=== PATIENT | female | born 1955 | race Caucasian/White ===

== ENCOUNTER 2016-09-02 13:19 | Inpatient (IN) | payer SELFPAY ==
[~2016-09-02] VITALS: Ht 149.9 cm; Wt 37.0 kg
--- NOTE | ~2016-09-02 | CON ---
[place], [place] REPORT OF CONSULTATION NAME: KAVON MEADOWS UNIT #: [id number] ROOM: 420 DOCTOR: DONTA JONES MDPATIRCIA BIRTHDATE: [birth year] DOS: 09/03/2016 PULMONARY CONSULTATION EVALUATION AND MANAGEMENT REASON FOR CONSULTATION: To assess the patient for COPD and increased symptoms related to that. HISTORY OF PRESENT ILLNESS: This is a 61-year-old white female unknown to me from the past. The patient has been admitted to the hospital under the hospitalist services. The patient stated that she has been feeling burning sensation in the stomach for the patient related to the ulcer. The patient also noted symptoms of shortness of breath as well. She denies symptoms of chest pain. Shortness of breath has been noted for a long period of time and noted with recent worsening. The patient has been denying any symptoms of acute cough. Denies symptoms of chest pain or any active wheezing. The patient stated that she has felt improvement in the symptoms since yesterday. REVIEW OF SYSTEMS: CONSTITUTIONAL SYMPTOMS: She does complain of symptoms of fatigue and tiredness without any symptoms of fever or chills. EYES: Denies any burning, redness, or tenderness. EARS, NOSE, THROAT SYMPTOMS: No sore throat, hoarseness, otalgia, postnasal drainage. CARDIOVASCULAR SYSTEM: Denies anginal pain, edema or pain of the lower extremities. GASTROINTESTINAL SYMPTOMS: The patient does complain of burning sensation and pain in the upper portion of the abdomen. Denies symptoms of hematemesis, melena, hematochezia or diarrhea. GENITOURINARY SYMPTOMS: Denies dysuria, suprapubic pain, hematuria. MUSCULOSKELETAL SYMPTOMS: Acute joint pain, redness, or tenderness. SKIN: No lesions or rashes. CENTRAL NERVOUS SYSTEM: Denies dizziness, headache, diplopia, syncopal episodes or seizures. Remaining systems were reviewed with the patient, they were noted all negative. PAST MEDICAL HISTORY: The patient was known with, 1. History of COPD ____. 2. Possibility chronic hypoxic respiratory failure per patient, but not using oxygen supplementation stated because of the oxygen, she could not afford at home. 3. Peptic ulcer disease. SOCIAL HISTORY: The patient reported with 2 children. Smoking was noted of the patient actively 1 pack of cigarettes per day. SURGICAL HISTORY: Denied for any surgeries. FAMILY HISTORY: About the father was unknown. Mother at the age of 6565 years old from unknown medical complications. [place], [place] REPORT OF CONSULTATION NAME: KAVON MEADOWS #: [id number] UNIT #: [id number] ROOM: [facility] DOCTOR: PATRICIA DE JESUS MD BIRTHDATE: [birth year] MEDICATIONS: The medication reconciliation of the patient which has been recorded for the patient at the time of admission from home were noted as Carafate, omeprazole, and albuterol with the nebulizer p.r.n. use. DRUG ALLERGY HISTORY: The patient was reported as allergy to the aspirin causing ringing in the ears. 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 Height of 4 feet 11 inches, weight of 36 kilograms, BMI 16.4. VITAL SIGNS: Showed normal temperature, respiratory rate 18-20, heart rate of 94-116 with mild sinus tachycardia, blood pressure 87/71 for the patient to 102/56. Intake for the patient 2400 mL, output 800 mL. Pulse oxygen saturation on room air was 87% 2 L nasal cannula 97% saturation. HEENT: Examination shows head was atraumatic. Eyes: No icterus. Neck was supple. Edentulous status. CARDIOVASCULAR SYSTEM: S1, S2 is audible. LUNGS: The patient was noted with diffuse reduction in breath sounds bilaterally without any active crackles, rhonchi or wheezing. ABDOMEN: Soft, nontender, bowel sounds present. EXTREMITIES: Show loss of muscle mass for this patient, there was no edema, clubbing or cyanosis. CENTRAL NERVOUS SYSTEM: No focal deficit. Cranial nerves 2-12 intact. MUSCULOSKELETAL SYMPTOMS: No deformities. SKIN: No lesions or rashes. LABORATORY DATA: Lactic acid yesterday 1.5 that was normal. INR for the patient yesterday was noted as normal on admission. CMP yesterday on admission, normal BUN and creatinine. Liver function tests, CK-MB and troponin. CBC yesterday on admission, WBC count 14.4, hemoglobin normal, hematocrit 48.8 that was normal, platelet count 245,000. The differentials of the patient ____ differential noted 93% segmented neutrophils. Arterial blood gas pH of 7.35, pCO2 of 44, pO2 of 115 on unknown oxygen room air not reported. Additional 2 sets of CK-MB, troponin of patient this morning was done, noted normal. The BMP of the patient was noted as normal today. CBC of the patient of this morning, hemoglobin and hematocrit normal. WBC count was normal, platelet count was normal, 185,000. Chest x-ray one view for the patient that was done for this patient in the Emergency Room for this patient was reviewed, shows severe hyperinflated changes and changes of centrilobular emphysema for this patient was also noted. No discrete pulmonary infiltration for this patient noted with small linear area of atelectasis of the patient in the left lower lung. IMPRESSION: 1. The patient who had been currently admitted to the hospital noted with possibility of flare of the symptoms of peptic ulcer disease for this patient. 2. The patient with hypoxia, suspected obstructive sleep apnea disorder. 3. Chronic nicotine dependence. 4. Protein calorie malnutrition was suspected with chronic weight loss for this [place], [place] REPORT OF CONSULTATION NAME: KAVON MEADOWS UNIT #: [id number] ROOM: 420 DOCTOR: DONTA JONES MD,PATRICIA BIRTHDATE: [birth year] patient related to the advanced emphysema for this patient would be considered. PLAN OF TREATMENT: The patient would be recommended about the treatment of long-term management of COPD, oxygen supplementation to be continued. She would not require any corticosteroids at this time. Prealbumin level was ordered for the patient to assess the protein calorie malnutrition status for the baseline. The nutrition supplements for this patient could be given for this patient as well for increased calorie intake. She had been offered to use the nicotine replacement patches for this patient to help overcome the nicotine withdrawal. The patient does not wish to use any nicotine replacement therapy stated that she can fight of the current tobacco cessation. Other supportive therapy, plan of management to be continued as well. Usual care. Nutrition supplements, the patient will be ordered. Thanks for allowing me to participate in the care of this patient. PATRICIA LONGO MD CM:CONSTR:REPORT OF CONSULTATION 1209 09/04/16 0633 interface
[~2016-09-02 13:19] MED LIST: ALBUTEROL2.5 MG/0.5 INH; CARAFATE1 G1 PO; MAALOX MAXIMUM355 ML PO; NKHM; PRILOSEC20 M2 PO; PRILOSEC40 M1 PO; PRILOSEC40 MG PO; PROTONIX40 MG PO
[2016-09-02 13:26] VITALS: BP 97/68
[2016-09-02 14:22] LABS: HEMATOCRIT 48.8 % (37.0-47.0); HEMOGLOBIN 15.6 g/dl (12.0-16.0); MEAN CELL VOLUME 110.7 fl (81.0-99.0); MEAN CORPUSCULAR HGB 35.4 pg (27.0-31.0); MEAN PLATELET VOLUME 12.2 fl (9.6-12.3); PLATELET COUNT AUTOMATED 245 10*3/uL (130-400); RED BLOOD COUNT 4.41 10*6/uL (4.10-5.10); RED CELL DISTRI WIDTH 11.7 % (0-14.5); WHITE BLOOD COUNT 14.4 10*3/uL (4.8-10.8)
[2016-09-02 14:39] LABS: ALBUMIN 3.7 gm/dl (3.1-4.5); ALKALINE PHOSPHATASE 81 U/L (45-117); BILIRUBIN, TOTAL 0.7 mg/dl (0.2-1.0); BUN 19 mg/dl (7-24); CARBON DIOXIDE 29 mmol/L (21-32); CHLORIDE 102 mmol/L (98-107); CPK 55 U/L (26-192); EST GLOM FILT AFRICAN AMERICAN > 60 ml/min; GLUCOSE 107 mg/dL (65-99); LDH 135 U/L (84-246); MAGNESIUM 1.9 mg/dL (1.5-2.1); POTASSIUM 4.9 mmol/L (3.5-5.1); SGOT/AST 15 IU/L (3-35); SGPT/ALT 15 U/L (12-78); SODIUM 141 mmol/L (136-145); TOTAL PROTEIN 7.9 gm/dL (6.4-8.2)
[2016-09-02 14:40] LABS: CKMB 1.7 ng/ml (0.5-3.6); EOSINOPHIL # 0.1 10*3/uL (0-0.4); EOSINOPHILS 1 % (1-4); LYMPHOCYTE # 0.7 10*3/uL (1.3-4.4); MONOCYTE # 0.1 10*3/uL (0.1-1.0); NEUTROPHIL # 13.4 10*3/uL (2.3-7.9); NEUTROPHILS 93 % (47-73); TOTAL CELLS COUNTED 100 #CELLS; TROPONIN I < 0.015 ng/ml (<0.045)
[2016-09-02 14:41] LABS: PLATELET SUFFICIENCY NORMAL (NORMAL)
[2016-09-02 15:55] VITALS: BP 102/56
[2016-09-02 15:56] LABS: ABG BASE EXCESS -1.3 mmol/L (-2.0-2.0); ABG CO2 CONTENT 25.3 mmol/L (23-27); ABG TEMPERATURE 98.8 F (98.0-99.0); ARTERIAL BLOOD GAS PH 7.35 (7.35-7.45)
[2016-09-02 17:58] VITALS: BP 87/71
[2016-09-02 20:00] VITALS: BP 85/62
[2016-09-03] VITALS: BP 94/62
[2016-09-03 00:53] LABS: CKMB 2.5 ng/ml (0.5-3.6)
[2016-09-03 00:56] LABS: CPK 146 U/L (26-192); TROPONIN I < 0.015 ng/ml (<0.045)
[2016-09-03 06:19] LABS: MEAN CELL VOLUME 111.3 fl (81.0-99.0); MEAN CORPUSCULAR HGB 34.7 pg (27.0-31.0); MEAN CORPUSCULAR HGB CONC 31.2 g/dl (33.0-37.0); MEAN PLATELET VOLUME 12.7 fl (9.6-12.3); PLATELET COUNT AUTOMATED 185 10*3/uL (130-400); RED BLOOD COUNT 3.54 10*6/uL (4.10-5.10); RED CELL DISTRI WIDTH 11.6 % (0-14.5); WHITE BLOOD COUNT 6.3 10*3/uL (4.8-10.8)
[2016-09-03 06:33] LABS: CKMB 3.8 ng/ml (0.5-3.6)
[2016-09-03 06:35] LABS: CPK 237 U/L (26-192); TROPONIN I < 0.015 ng/ml (<0.045)
[2016-09-03 06:39] LABS: HEMATOCRIT 39.4 % (37.0-47.0); HEMOGLOBIN 12.3 g/dl (12.0-16.0); HEMOGLOBIN A1c 4.9 % (4.8-5.6)
[2016-09-03 06:59] LABS: BUN 12 mg/dl (7-24); CARBON DIOXIDE 27 mmol/L (21-32); CHLORIDE 109 mmol/L (98-107); GLUCOSE 77 mg/dL (65-99); MAGNESIUM 1.9 mg/dL (1.5-2.1); SODIUM 143 mmol/L (136-145)
[2016-09-03 07:07] LABS: VITAMIN D, 25-HYDROXY 6.5 ng/mL (30-100)
[2016-09-03 07:08] LABS: FOLIC ACID 5.41 ng/mL (>5.38)
[2016-09-03 07:12] LABS: CHOLESTEROL 106 mg/dL (<200); EST GLOM FILT AFRICAN AMERICAN > 60 ml/min; HDL CHOLESTEROL 53 mg/dl (40-60); LDL CHOLESTEROL 38 mg/dL (9-159); PHOSPHOROUS 2.8 mg/dL (2.5-4.9); TRIGLYCERIDES 76 mg/dl (<150); VLDL CHOLESTEROL 15 mg/dL (6-40)
[2016-09-03 07:13] LABS: POTASSIUM 3.9 mmol/L (3.5-5.1)
[2016-09-03 07:19] LABS: ATYPICAL LYMPHS 1 % (0-0); LYMPHOCYTE # 0.9 10*3/uL (1.3-4.4); MONOCYTE # 0.1 10*3/uL (0.1-1.0); NEUTROPHIL # 5.2 10*3/uL (2.3-7.9); NEUTROPHILS 83 % (47-73); TOTAL CELLS COUNTED 100 #CELLS
[2016-09-03 07:20] LABS: PLATELET SUFFICIENCY NORMAL (NORMAL)
[2016-09-03 08:00] VITALS: BP 96/68
[2016-09-03 12:00] VITALS: BP 85/42
[2016-09-03 14:37] VITALS: BP 94/51
[2016-09-03 16:00] VITALS: BP 90/61
[2016-09-03] MEDS ORDERED: PREDNISONE10 MG PO (16:28)
[2016-09-03] MEDS ORDERED: LEVOFLOXACIN500 MG PO (16:28)
[2016-09-03] MEDS ORDERED: PROAIR HFA8.5 GM INH (16:28)
[2016-09-03] MEDS ORDERED: VITAMIN D5000 UNIT PO (16:30)
[2016-09-03] MEDS ORDERED: OXYGEN NAS (16:30)
== END 2016-09-03 17:46 | disposition home or self-care (01) | DRG 871 ==
LOC: ED 13:19 → EDHOLD 16:37 → 4E 16:37
PROVIDERS: Internal Medicine; Physician Assistant
DX: A41.9 Sepsis, unspecified organism (principal); J96.21 Acute and chronic respiratory failure with hypoxia; K27.9 Peptic ulcer, site unspecified, unspecified as acute or chronic, without hemorrhage or perforation; E55.9 Vitamin D deficiency, unspecified; F17.210 Nicotine dependence, cigarettes, uncomplicated; K21.9 Gastro-esophageal reflux disease without esophagitis; E46 Unspecified protein-calorie malnutrition; J44.1 Chronic obstructive pulmonary disease with (acute) exacerbation; Z68.1 Body mass index [BMI] 19.9 or less, adult; Z71.6 Tobacco abuse counseling; Z99.81 Dependence on supplemental oxygen; Z82.49 Family history of ischemic heart disease and other diseases of the circulatory system; Z88.6 Allergy status to analgesic agent; Z79.51 Long term (current) use of inhaled steroids; Z79.899 Other long term (current) drug therapy

== ENCOUNTER 2016-09-04 12:23 | Emergency (ER) | payer SELFPAY ==
[~2016-09-04] VITALS: Wt 35.4 kg
[~2016-09-04 12:23] MED LIST changes: +LEVOFLOXACIN500 MG PO; +OXYGEN NAS; +PREDNISONE10 MG PO; +PROAIR HFA8.5 GM INH; +VITAMIN D5000 UNIT PO
[2016-09-04 13:04] LABS: HEMATOCRIT 41.1 % (37.0-47.0); HEMOGLOBIN 13.1 g/dl (12.0-16.0); MEAN CORPUSCULAR HGB 35.7 pg (27.0-31.0); MEAN CORPUSCULAR HGB CONC 31.9 g/dl (33.0-37.0); MEAN PLATELET VOLUME 11.9 fl (9.6-12.3); PLATELET COUNT AUTOMATED 203 10*3/uL (130-400); RED BLOOD COUNT 3.67 10*6/uL (4.10-5.10); RED CELL DISTRI WIDTH 11.7 % (0-14.5); WHITE BLOOD COUNT 5.5 10*3/uL (4.8-10.8)
[2016-09-04 13:04] LABS: BILIRUBIN NEGATIVE (NEGATIVE); BLOOD 2+ (NEGATIVE); CLARITY CLEAR (CLEAR); COLOR YELLOW (YELLOW); GLUCOSE NEGATIVE (NEGATIVE); KETONE TRACE (NEGATIVE); LEUKO ESTERASE NEGATIVE (NEGATIVE); NITRITE NEGATIVE (NEGATIVE); PROTEIN NEGATIVE (NEGATIVE); SPECIFIC GRAVITY 1.015 (1.005-1.030); UROBILINOGEN 0.2 E.U./dl (0.2-1.0)
[2016-09-04 13:19] LABS: URINE REFLEX COMMENT YES (NO)
[2016-09-04 13:23] LABS: ALBUMIN 3.2 gm/dl (3.1-4.5); ALKALINE PHOSPHATASE 66 U/L (45-117); BILIRUBIN, TOTAL 0.2 mg/dl (0.2-1.0); BUN 7 mg/dl (7-24); CARBON DIOXIDE 27 mmol/L (21-32); CHLORIDE 108 mmol/L (98-107); EST GLOM FILT AFRICAN AMERICAN > 60 ml/min; GLUCOSE 88 mg/dL (65-99); SGOT/AST 21 IU/L (3-35); SGPT/ALT 15 U/L (12-78); SODIUM 144 mmol/L (136-145); TOTAL PROTEIN 6.7 gm/dL (6.4-8.2)
[2016-09-04 13:26] LABS: EOSINOPHIL # 0.1 10*3/uL (0-0.4); EOSINOPHILS 1 % (1-4); LYMPHOCYTE # 1.5 10*3/uL (1.3-4.4); MONOCYTE # 0.4 10*3/uL (0.1-1.0); NEUTROPHIL # 3.6 10*3/uL (2.3-7.9); NEUTROPHILS 65 % (47-73); PLATELET SUFFICIENCY NORMAL (NORMAL); TOTAL CELLS COUNTED 100 #CELLS
== END 2016-09-04 14:35 | disposition home or self-care (01) ==
LOC: ED 12:23
PROVIDERS: Registered Nurse
DX: J43.9 Emphysema, unspecified (principal); F17.200 Nicotine dependence, unspecified, uncomplicated; Z88.6 Allergy status to analgesic agent; Z79.899 Other long term (current) drug therapy

== ENCOUNTER 2016-09-20 11:22 | Emergency (ER) | payer SELFPAY ==
[2016-09-20] MEDS ORDERED: VENTOLIN 02.5 MG/3 M INH (12:59)
== END 2016-09-20 13:10 | disposition home or self-care (01) ==
LOC: ED 11:22
DX: R25.1 Tremor, unspecified (principal); J44.9 Chronic obstructive pulmonary disease, unspecified; K21.9 Gastro-esophageal reflux disease without esophagitis; F17.200 Nicotine dependence, unspecified, uncomplicated; Z88.6 Allergy status to analgesic agent; Z79.899 Other long term (current) drug therapy

== ENCOUNTER 2016-09-23 12:06 | Emergency (ER) | payer SELFPAY ==
[~2016-09-23] VITALS: Wt 35.4 kg
[~2016-09-23 12:06] MED LIST changes: +VENTOLIN 02.5 MG/3 M INH
== END 2016-09-23 14:20 | disposition home or self-care (01) ==
LOC: ED 12:06
DX: J44.9 Chronic obstructive pulmonary disease, unspecified (principal); K21.9 Gastro-esophageal reflux disease without esophagitis; E55.9 Vitamin D deficiency, unspecified; F17.200 Nicotine dependence, unspecified, uncomplicated; Z88.6 Allergy status to analgesic agent; Z79.899 Other long term (current) drug therapy; Z99.81 Dependence on supplemental oxygen

== ENCOUNTER 2016-11-28 12:15 | Emergency (ER) | payer SELFPAY ==
[~2016-11-28] VITALS: Wt 35.8 kg
[2016-11-28 13:02] LABS: HEMATOCRIT 40.9 % (37.0-47.0); HEMOGLOBIN 12.7 g/dl (12.0-16.0); MEAN CELL VOLUME 113.3 fl (81.0-99.0); MEAN CORPUSCULAR HGB 35.2 pg (27.0-31.0); MEAN CORPUSCULAR HGB CONC 31.1 g/dl (33.0-37.0); MEAN PLATELET VOLUME 11.9 fl (9.6-12.3); PLATELET COUNT AUTOMATED 220 10*3/uL (130-400); RED BLOOD COUNT 3.61 10*6/uL (4.10-5.10); RED CELL DISTRI WIDTH 11.8 % (0-14.5); WHITE BLOOD COUNT 6.3 10*3/uL (4.8-10.8)
[2016-11-28 13:14] LABS: BILIRUBIN NEGATIVE (NEGATIVE); BLOOD NEGATIVE (NEGATIVE); CLARITY SL CLOUDY (CLEAR); COLOR STRAW (YELLOW); GLUCOSE NEGATIVE (NEGATIVE); KETONE NEGATIVE (NEGATIVE); LEUKO ESTERASE NEGATIVE (NEGATIVE); NITRITE NEGATIVE (NEGATIVE); PH 7.5 (5.0-9.0); PROTEIN NEGATIVE (NEGATIVE); SPECIFIC GRAVITY <= 1.005 (1.005-1.030); UROBILINOGEN 0.2 E.U./dl (0.2-1.0)
[2016-11-28 13:20] LABS: ALBUMIN 3.8 gm/dl (3.1-4.5); ALKALINE PHOSPHATASE 74 U/L (45-117); BILIRUBIN, TOTAL 0.3 mg/dl (0.2-1.0); BUN 9 mg/dl (7-24); CARBON DIOXIDE 34 mmol/L (21-32); CHLORIDE 100 mmol/L (98-107); EST GLOM FILT AFRICAN AMERICAN > 60 ml/min; GLUCOSE 85 mg/dL (65-99); POTASSIUM 4.6 mmol/L (3.5-5.1); SGOT/AST 14 IU/L (3-35); SGPT/ALT 13 U/L (12-78); SODIUM 144 mmol/L (136-145); TOTAL PROTEIN 7.5 gm/dL (6.4-8.2)
[2016-11-28 13:21] LABS: BASOPHIL # 0.1 10*3/uL (0-0.1); BASOPHILS 1 % (0-1); LYMPHOCYTE # 2.1 10*3/uL (1.3-4.4); MONOCYTE # 0.3 10*3/uL (0.1-1.0); NEUTROPHIL # 3.9 10*3/uL (2.3-7.9); NEUTROPHILS 62 % (47-73); PLATELET SUFFICIENCY NORMAL (NORMAL); TOTAL CELLS COUNTED 100 #CELLS; TROPONIN I < 0.015 ng/ml (<0.045)
[2016-11-28 13:28] LABS: URINE REFLEX COMMENT NO (NO)
[2016-11-28 13:29] LABS: BACTERIA TRACE
[2016-11-28] MEDS ORDERED: PEPCID20 MG PO (13:38)
== END 2016-11-28 14:58 | disposition home or self-care (01) ==
LOC: ED 12:15
PROVIDERS: Physician Assistant
DX: K21.9 Gastro-esophageal reflux disease without esophagitis (principal); F17.200 Nicotine dependence, unspecified, uncomplicated; Z88.6 Allergy status to analgesic agent

== ENCOUNTER 2016-12-09 16:39 | Emergency (ER) | payer SELFPAY ==
[~2016-12-09] VITALS: Wt 33.6 kg
[~2016-12-09 16:39] MED LIST changes: +PEPCID20 MG PO
[2016-12-09 17:15] LABS: BILIRUBIN NEGATIVE (NEGATIVE); BLOOD TRACE-INTACT (NEGATIVE); CLARITY CLEAR (CLEAR); COLOR YELLOW (YELLOW); GLUCOSE NEGATIVE (NEGATIVE); KETONE NEGATIVE (NEGATIVE); LEUKO ESTERASE NEGATIVE (NEGATIVE); NITRITE NEGATIVE (NEGATIVE); PROTEIN NEGATIVE (NEGATIVE); SPECIFIC GRAVITY <= 1.005 (1.005-1.030); UROBILINOGEN 0.2 E.U./dl (0.2-1.0)
[2016-12-09 17:21] LABS: BACTERIA TRACE; EPITHELIAL CELLS 0-2
[2016-12-09 17:22] LABS: URINE REFLEX COMMENT NO (NO)
[2016-12-09 17:27] LABS: HEMATOCRIT 41.7 % (37.0-47.0); HEMOGLOBIN 12.8 g/dl (12.0-16.0); MEAN CELL VOLUME 112.7 fl (81.0-99.0); MEAN CORPUSCULAR HGB 34.6 pg (27.0-31.0); MEAN CORPUSCULAR HGB CONC 30.7 g/dl (33.0-37.0); MEAN PLATELET VOLUME 12.2 fl (9.6-12.3); PLATELET COUNT AUTOMATED 217 10*3/uL (130-400); RED CELL DISTRI WIDTH 11.5 % (0-14.5); WHITE BLOOD COUNT 6.2 10*3/uL (4.8-10.8)
[2016-12-09 17:47] LABS: ALBUMIN 3.8 gm/dl (3.1-4.5); ALKALINE PHOSPHATASE 65 U/L (45-117); BILIRUBIN, TOTAL 0.3 mg/dl (0.2-1.0); BUN 8 mg/dl (7-24); CARBON DIOXIDE 34 mmol/L (21-32); CHLORIDE 100 mmol/L (98-107); EST GLOM FILT AFRICAN AMERICAN > 60 ml/min; GLUCOSE 91 mg/dL (65-99); POTASSIUM 4.1 mmol/L (3.5-5.1); SGOT/AST 16 IU/L (3-35); SGPT/ALT 13 U/L (12-78); SODIUM 140 mmol/L (136-145); TOTAL PROTEIN 7.4 gm/dL (6.4-8.2)
[2016-12-09 17:49] LABS: TROPONIN I < 0.015 ng/ml (<0.045)
[2016-12-09 18:01] LABS: BASOPHIL # 0.1 10*3/uL (0-0.1); BASOPHILS 1 % (0-1); EOSINOPHIL # 0.1 10*3/uL (0-0.4); EOSINOPHILS 2 % (1-4); LYMPHOCYTE # 2.4 10*3/uL (1.3-4.4); MONOCYTE # 0.4 10*3/uL (0.1-1.0); NEUTROPHIL # 3.2 10*3/uL (2.3-7.9); NEUTROPHILS 52 % (47-73); TOTAL CELLS COUNTED 100 #CELLS
[2016-12-09 18:03] LABS: PLATELET SUFFICIENCY NORMAL (NORMAL); POLYCHROMASIA SLIGHT
[2016-12-09] MEDS ORDERED: PRILOSEC20 M1 PO (18:24)
== END 2016-12-09 18:35 | disposition home or self-care (01) ==
LOC: ED 16:39
PROVIDERS: Emergency Medicine
DX: R10.13 Epigastric pain (principal); R06.02 Shortness of breath; J44.9 Chronic obstructive pulmonary disease, unspecified; K21.9 Gastro-esophageal reflux disease without esophagitis; Z88.6 Allergy status to analgesic agent; Z79.899 Other long term (current) drug therapy; Z87.891 Personal history of nicotine dependence

== ENCOUNTER 2017-01-14 10:58 | Inpatient (IN) | payer SELFPAY ==
[~2017-01-14] VITALS: Ht 149.8 cm; Wt 37.2 kg
[2017-01-14] VITALS (7 sets, daily range): BP systolic 108–138; BP diastolic 47–81
--- NOTE | ~2017-01-14 | EKG ---
[place], [place] ELECTROCARDIOGRAM REPORT NAME: KAVON MEADOWS UNIT #: [id number] ROOM: 522 DOCTOR: CHIVO REES MD BIRTHDATE: [birth year] DOS: 01/14/2017 TIME: 1134 hours. Normal sinus rhythm at 81 beats per minute. QS in V1 to V3 with poor R-wave in V4 raises a likelihood of an old anterior wall myocardial, infarction. An abnormal ECG. No previous tracing is available for comparison. CHIVO REES MD CM:EKGRPT:ELECTROCARDIOGRAM REPORT 1730 10 CHIVO REES MD
[~2017-01-14 10:58] MED LIST changes: +PRILOSEC20 M1 PO
[2017-01-14 11:38] LABS: HEMATOCRIT 38.4 % (37.0-47.0); HEMOGLOBIN 12.1 g/dl (12.0-16.0); MEAN CELL VOLUME 112.3 fl (81.0-99.0); MEAN CORPUSCULAR HGB 35.4 pg (27.0-31.0); MEAN CORPUSCULAR HGB CONC 31.5 g/dl (33.0-37.0); MEAN PLATELET VOLUME 12.2 fl (9.6-12.3); PLATELET COUNT AUTOMATED 226 10*3/uL (130-400); RED BLOOD COUNT 3.42 10*6/uL (4.10-5.10); RED CELL DISTRI WIDTH 11.4 % (0-14.5); WHITE BLOOD COUNT 5.1 10*3/uL (4.8-10.8)
[2017-01-14 11:47] LABS: PROTHROMBIN TIME 10.5 SECONDS (9.0-12.4)
[2017-01-14 11:54] LABS: ALBUMIN 3.8 gm/dl (3.1-4.5); ALKALINE PHOSPHATASE 60 U/L (45-117); BILIRUBIN, TOTAL 0.4 mg/dl (0.2-1.0); BUN 10 mg/dl (7-24); CARBON DIOXIDE 36 mmol/L (21-32); CHLORIDE 102 mmol/L (98-107); CPK 55 U/L (26-192); EST GLOM FILT AFRICAN AMERICAN > 60 ml/min; GLUCOSE 87 mg/dL (65-99); MAGNESIUM 2.3 mg/dL (1.5-2.1); POTASSIUM 4.2 mmol/L (3.5-5.1); SGOT/AST 15 IU/L (3-35); SGPT/ALT 14 U/L (12-78); SODIUM 141 mmol/L (136-145); TOTAL PROTEIN 7.2 gm/dL (6.4-8.2)
[2017-01-14 11:56] LABS: C-REACTIVE PROTEIN < 0.29 MG/DL (0-0.3); TROPONIN I < 0.015 ng/ml (<0.045)
[2017-01-14 11:58] LABS: BASOPHIL # 0.2 10*3/uL (0-0.1); BASOPHILS 3 % (0-1); LYMPHOCYTE # 1.7 10*3/uL (1.3-4.4); MONOCYTE # 0.4 10*3/uL (0.1-1.0); NEUTROPHIL # 2.9 10*3/uL (2.3-7.9); NEUTROPHILS 57 % (47-73); PLATELET SUFFICIENCY NORMAL (NORMAL); TOTAL CELLS COUNTED 100 #CELLS
[2017-01-14 12:08] LABS: BILIRUBIN NEGATIVE (NEGATIVE); BLOOD TRACE-LYSED (NEGATIVE); CLARITY CLEAR (CLEAR); COLOR YELLOW (YELLOW); GLUCOSE NEGATIVE (NEGATIVE); KETONE NEGATIVE (NEGATIVE); LEUKO ESTERASE NEGATIVE (NEGATIVE); NITRITE NEGATIVE (NEGATIVE); PROTEIN NEGATIVE (NEGATIVE); SPECIFIC GRAVITY <= 1.005 (1.005-1.030); UROBILINOGEN 0.2 E.U./dl (0.2-1.0)
[2017-01-14 12:15] LABS: EPITHELIAL CELLS 0-2; RBC 0-2 rbc/hpf (0-2); URINE REFLEX COMMENT NO (NO)
[2017-01-15] VITALS: BP 92/70
[2017-01-15 06:29] LABS: HEMATOCRIT 34.9 % (37.0-47.0); MEAN CELL VOLUME 112.9 fl (81.0-99.0); MEAN CORPUSCULAR HGB 35.6 pg (27.0-31.0); MEAN CORPUSCULAR HGB CONC 31.5 g/dl (33.0-37.0); MEAN PLATELET VOLUME 12.8 fl (9.6-12.3); PLATELET COUNT AUTOMATED 208 10*3/uL (130-400); RED BLOOD COUNT 3.09 10*6/uL (4.10-5.10); RED CELL DISTRI WIDTH 11.3 % (0-14.5); WHITE BLOOD COUNT 4.9 10*3/uL (4.8-10.8)
[2017-01-15 06:59] LABS: ALBUMIN 3.4 gm/dl (3.1-4.5); BUN 8 mg/dl (7-24); CARBON DIOXIDE 35 mmol/L (21-32); CHLORIDE 104 mmol/L (98-107); CHOLESTEROL 184 mg/dL (<200); EST GLOM FILT AFRICAN AMERICAN > 60 ml/min; GLUCOSE 98 mg/dL (65-99); HDL CHOLESTEROL 83 mg/dl (40-60); MAGNESIUM 2.1 mg/dL (1.5-2.1); POTASSIUM 4.8 mmol/L (3.5-5.1); SGOT/AST 19 IU/L (3-35); SGPT/ALT 12 U/L (12-78); SODIUM 141 mmol/L (136-145)
[2017-01-15 07:02] LABS: ALKALINE PHOSPHATASE 53 U/L (45-117); BILIRUBIN, TOTAL 0.4 mg/dl (0.2-1.0); LDL CHOLESTEROL 89 mg/dL (9-159); PHOSPHOROUS 3.2 mg/dL (2.5-4.9); TOTAL PROTEIN 6.6 gm/dL (6.4-8.2); TRIGLYCERIDES 59 mg/dl (<150); VLDL CHOLESTEROL 12 mg/dL (6-40)
[2017-01-15 07:03] LABS: PROTHROMBIN TIME 10.5 SECONDS (9.0-12.4)
[2017-01-15 07:20] LABS: FOLIC ACID 10.08 ng/mL (>5.38)
[2017-01-15 07:23] LABS: LYMPHOCYTE # 1.4 10*3/uL (1.3-4.4); MONOCYTE # 0.3 10*3/uL (0.1-1.0); NEUTROPHIL # 3.1 10*3/uL (2.3-7.9); NEUTROPHILS 64 % (47-73); PLATELET SUFFICIENCY NORMAL (NORMAL); POLYCHROMASIA SLIGHT; TOTAL CELLS COUNTED 100 #CELLS
[2017-01-15 08:00] VITALS: BP 107/78
[2017-01-15 12:00] VITALS: BP 113/62
[2017-01-15 16:00] VITALS: BP 105/69
[2017-01-15 20:00] VITALS: BP 94/62
[2017-01-16] VITALS: BP 108/51
[2017-01-16 07:14] LABS: HEMOGLOBIN 11.4 g/dl (12.0-16.0); MEAN CELL VOLUME 111.8 fl (81.0-99.0); MEAN CORPUSCULAR HGB 35.4 pg (27.0-31.0); MEAN CORPUSCULAR HGB CONC 31.7 g/dl (33.0-37.0); MEAN PLATELET VOLUME 13.4 fl (9.6-12.3); PLATELET COUNT AUTOMATED 185 10*3/uL (130-400); RED BLOOD COUNT 3.22 10*6/uL (4.10-5.10); RED CELL DISTRI WIDTH 11.3 % (0-14.5); WHITE BLOOD COUNT 6.7 10*3/uL (4.8-10.8)
[2017-01-16 07:40] LABS: BUN 14 mg/dl (7-24); CARBON DIOXIDE 37 mmol/L (21-32); CHLORIDE 101 mmol/L (98-107); EST GLOM FILT AFRICAN AMERICAN > 60 ml/min; GLUCOSE 106 mg/dL (65-99); POTASSIUM 4.2 mmol/L (3.5-5.1); SODIUM 141 mmol/L (136-145)
[2017-01-16 07:44] LABS: LYMPHOCYTE # 0.5 10*3/uL (1.3-4.4); MONOCYTE # 0.2 10*3/uL (0.1-1.0); NEUTROPHILS 90 % (47-73); PLATELET SUFFICIENCY NORMAL (NORMAL); TOTAL CELLS COUNTED 100 #CELLS
[2017-01-16 08:00] VITALS: BP 134/84
[2017-01-16] MEDS ORDERED: VENTOLIN 02.5 MG/3 M INH (11:46)
[2017-01-16] MEDS ORDERED: PEPCID20 MG PO (11:46)
[2017-01-16] MEDS ORDERED: PRILOSEC20 M1 PO (11:46)
[2017-01-16] MEDS ORDERED: PREDNISONE10 MG PO (11:46)
[2017-01-16] MEDS ORDERED: CARAFATE1 G1 PO (11:46)
[2017-01-16] MEDS ORDERED: GAVISCON 80 MG-1 CT1 PO (11:46)
[2017-01-16 12:00] VITALS: BP 104/51
== END 2017-01-16 14:08 | disposition home or self-care (01) | DRG 392 ==
LOC: ED 10:58 → EDHOLD 12:42 → 5E 12:42
PROVIDERS: Emergency Medicine; Student in an Organized Health Care Education/Training Program
DX: K21.9 Gastro-esophageal reflux disease without esophagitis (principal); Z99.81 Dependence on supplemental oxygen; R26.81 Unsteadiness on feet; E83.41 Hypermagnesemia; R06.82 Tachypnea, not elsewhere classified; R31.29 Other microscopic hematuria; K27.9 Peptic ulcer, site unspecified, unspecified as acute or chronic, without hemorrhage or perforation; R03.0 Elevated blood-pressure reading, without diagnosis of hypertension; F17.210 Nicotine dependence, cigarettes, uncomplicated; Z71.6 Tobacco abuse counseling; Z88.6 Allergy status to analgesic agent; Z82.49 Family history of ischemic heart disease and other diseases of the circulatory system

== ENCOUNTER 2017-01-29 15:27 | Inpatient (IN) | payer SELFPAY ==
[~2017-01-29] VITALS: Ht 124.4 cm; Wt 45.4 kg
--- NOTE | ~2017-01-29 | CON ---
[place], [place] REPORT OF CONSULTATION NAME: KAVON [facility] #: [id number] UNIT #: [id number] ROOM: 504 DOCTOR: PATRICIA DE JESUS MD BIRTHDATE: [birth year] DOS: 02/01/2017 REQUESTED BY: Hospitalist services. REASON FOR CONSULTATION: Assess the patient for COPD exacerbation. HISTORY OF PRESENT ILLNESS: The patient is a 61-year-old white female who has been seen only once during the past hospitalization prior to the discharge on 09/03/2016. The patient was treated for acute exacerbation of chronic obstructive pulmonary disease, acute tracheobronchitis at that time. She presented to the hospital and the patient has been admitted to the hospital since 01/29/2017 as the patient has been noted with increased symptoms of shortness of breath ongoing for the past few days. The symptoms are noted to have significantly worsened. Cough was noted for this patient, which was noted mostly nonproductive, moderate in severity. Wheezing was also noted with gradual worsening. The patient denies symptoms of chest pain or hemoptysis. She has been admitted to [facility] recently and discharged a couple of weeks ago for the medical management of epigastric pain assessment. The patient denies symptoms of hemoptysis or a chest trauma. The patient stated symptoms have been improving. She would like to be discharged home soon. REVIEW OF SYSTEMS: CONSTITUTIONAL SYMPTOMS: Fatigue and tiredness noted without symptoms of fever or chills. EYES: Denies any burning, redness, or tenderness. NECK, EARS, NOSE, THROAT SYMPTOMS: No sore throat, hoarseness, otalgia, postnasal drainage or epistaxis. CARDIOVASCULAR SYSTEM: Denies anginal pain, edema or pain of the lower extremities. GASTROINTESTINAL SYSTEM: Denies dysphagia, nausea, vomiting, diarrhea, abdominal pain, hematemesis, melena, hematochezia. SKIN: Denies any lesions or rashes. MUSCULOSKELETAL SYSTEM: Denies acute joint pain, redness, or tenderness. CENTRAL NERVOUS SYSTEM: Denies dizziness, headache, diplopia or syncopal episodes. Remaining systems were reviewed with the patient, they were noted all negative. PAST MEDICAL HISTORY: The patient was known with history of: 1. Centrilobular emphysema. 2. Chronic hypoxic respiratory failure, dependent on oxygen 3 liters nasal cannula. 3. History of chronic nicotine dependence. The patient with variable tobacco use at this time. 4. History of peptic ulcer disease. SOCIAL HISTORY: The patient is , has 2 children. Tobacco use noted since teenager, variable tobacco use. The patient's maximum tobacco use noted a pack of cigarettes per day, stating that she is currently smoking a pack of cigarette in about a week. Denies history of alcohol use or illicit drug use or [place], [place] REPORT OF CONSULTATION NAME: KAVON MEADOWS UNIT #: [id number] ROOM: [facility] DOCTOR: PATRICIA DE JESUS MD BIRTHDATE: [birth year] any occupation related pulmonary exposure. FAMILY HISTORY: History about the father was unknown. Mother at age 65 years from unknown medical complications. PAST SURGICAL HISTORY: Noted as no known major surgeries as per patient. MEDICATIONS: The current medications administered were noted as use of Carafate, Protonix, IV Solu-Medrol 40 mg every 8 hours, Reglan, DuoNeb, vitamin D, Lovenox for DVT prophylaxis, Mucinex 1200 mg b.i.d., IV Rocephin, azithromycin and other p.r.n. medications administration. DRUG ALLERGY HISTORY: The patient was reported as allergy to the aspirin causing ringing in the ears. PHYSICAL EXAMINATION: GENERAL: This is a 61-year-old female currently noted to be awake and alert without any distress, sitting on a bed. Height of 4 feet 11 inches, weight of 100 pounds. VITAL SIGNS: Vital signs which were recorded for the patient shows temperature of the patient noted as normal since admission. Respiratory rate ranged between 24-18, heart rate of 97-100, blood pressure 119/56 -107/51. HEENT: Examination shows head was atraumatic. Eyes nonicterus. NECK: Supple. CARDIOVASCULAR: S1, S2 is audible. LUNGS: The patient was noted with general reduction in the breath sounds with scattered wheezing. No crackles. ABDOMEN: Soft, nontender. EXTREMITIES: Shows no acute edema, clubbing, or cyanosis. SKIN: Showed no lesions or rashes. MUSCULOSKELETAL SYSTEM: No deformities. CENTRAL NERVOUS SYSTEM: Cranial nerves 2-12 intact. No focal deficit. LABORATORY DATA: CMP of the patient that was done on admission 01/29/2017 noted normal BUN and creatinine, CO2 was noted mildly elevated 34. CBC of the patient on 01/29/2017 on admission, WBC count normal, hemoglobin 11.9, hematocrit 38.2, platelet count was normal. The lactic acid of the patient noted on admission as 3.2. Troponin for patient on admission on 01/29/2017 was normal. PT/INR for the patient of 01/30/2017 was noted as normal PT/INR. Urine culture, the patient was noted with no bacterial growth since admission. Blood culture for the patient 2 sets, 01/29/2017 in the Emergency Room showed no bacterial growth. CBC of the patient that were done on 01/30/2017 noted with mild anemia, normal WBC count and platelet count. CMP of the patient that was done for the patient on 02/01/2017 shows a normal BUN and creatinine. Review of the radiology data for the patient was personally performed, the extremities were reviewed from the PACs system. Chest x-ray of the patient, 1 view, which was done in the Emergency Room with severe hyperinflated lung with changes of COPD, which were noted quite severe. Chest x-ray done this morning for this patient showed similar finding. There were no acute infiltration or any visible pulmonary nodules. [place], [place] REPORT OF CONSULTATION NAME: KAVON MEADOWS UNIT #: [id number] ROOM: [facility] DOCTOR: DONTA JONES MDPATRICIA BIRTHDATE: [birth year] IMPRESSION: 1. The patient who has been currently admitted to the hospital noted with acute exacerbation of chronic obstructive pulmonary disease with acute tracheobronchitis with gradual response noted on current treatment. Advanced chronic obstructive pulmonary disease and emphysema changes were also noted. 2. Possible consideration of protein-calorie malnutrition with muscle mass loss was also suspected. 3. Continued low grade nicotine abuse at the present time. PLAN OF MANAGEMENT: Dose of Solu-Medrol of this patient could be reduced today because of her response to current treatment. Monitor respiratory status. Consider possible discharge home on oral medications in the morning. Usual care, other supportive therapy, plan of management, DVT prophylaxis, and other medical treatment as ongoing. Other treatment changes will be done based on progression of the illness. PATRICIA LONGO MD CM:CONSTR:REPORT OF CONSULTATION 1042 02/02/17 0040 interface
[2017-01-29 15:27] VITALS: BP 120/98
[~2017-01-29 15:27] MED LIST changes: +GAVISCON 80 MG-1 CT1 PO
[2017-01-29 16:24] LABS: HEMATOCRIT 38.2 % (37.0-47.0); HEMOGLOBIN 11.9 g/dl (12.0-16.0); MEAN CORPUSCULAR HGB 35.2 pg (27.0-31.0); MEAN CORPUSCULAR HGB CONC 31.2 g/dl (33.0-37.0); MEAN PLATELET VOLUME 11.6 fl (9.6-12.3); PLATELET COUNT AUTOMATED 274 10*3/uL (130-400); RED BLOOD COUNT 3.38 10*6/uL (4.10-5.10); RED CELL DISTRI WIDTH 12.2 % (0-14.5); WHITE BLOOD COUNT 8.4 10*3/uL (4.8-10.8)
[2017-01-29 16:31] LABS: PROTHROMBIN TIME 10.6 SECONDS (9.0-12.4)
[2017-01-29 16:41] LABS: ALBUMIN 3.7 gm/dl (3.1-4.5); ALKALINE PHOSPHATASE 61 U/L (45-117); BILIRUBIN, TOTAL 0.3 mg/dl (0.2-1.0); BUN 12 mg/dl (7-24); CARBON DIOXIDE 34 mmol/L (21-32); CHLORIDE 102 mmol/L (98-107); CPK 33 U/L (26-192); EST GLOM FILT AFRICAN AMERICAN > 60 ml/min; GLUCOSE 97 mg/dL (65-99); LDH 147 U/L (84-246); MAGNESIUM 2.1 mg/dL (1.5-2.1); POTASSIUM 4.2 mmol/L (3.5-5.1); SGOT/AST 12 IU/L (3-35); SGPT/ALT 21 U/L (12-78); SODIUM 142 mmol/L (136-145)
[2017-01-29 16:42] LABS: CKMB 0.9 ng/ml (0.5-3.6); TROPONIN I < 0.015 ng/ml (<0.045)
[2017-01-29 16:43] LABS: METAMYELOCYTES 1 % (0-0); MONOCYTE # 0.3 10*3/uL (0.1-1.0); NEUTROPHIL # 7.1 10*3/uL (2.3-7.9); NEUTROPHILS 84 % (47-73); STOMATOCYTE FEW; TOTAL CELLS COUNTED 100 #CELLS
[2017-01-29 16:44] LABS: PLATELET SUFFICIENCY NORMAL (NORMAL)
[2017-01-29 16:52] VITALS: BP 112/68
[2017-01-29 17:08] LABS: BILIRUBIN NEGATIVE (NEGATIVE); BLOOD TRACE-LYSED (NEGATIVE); CLARITY CLOUDY (CLEAR); COLOR YELLOW (YELLOW); GLUCOSE NEGATIVE (NEGATIVE); KETONE NEGATIVE (NEGATIVE); LEUKO ESTERASE NEGATIVE (NEGATIVE); NITRITE NEGATIVE (NEGATIVE); PROTEIN NEGATIVE (NEGATIVE); SPECIFIC GRAVITY 1.015 (1.005-1.030)
[2017-01-29 17:32] LABS: BACTERIA 2+; URINE REFLEX COMMENT YES (NO)
[2017-01-29 19:15] VITALS: BP 109/60
[2017-01-29 20:00] VITALS: BP 109/74
[2017-01-29 20:08] LABS: LA>2 REFLEX 2 HR DRAW NOW
[2017-01-29 20:15] VITALS: BP 109/74
[2017-01-29 20:43] LABS: LA>2 RFLX FOLLOW UP AT 2 HRS 3.8 mmol/L (0.4-2.0)
[2017-01-29 22:37] LABS: LA>2 REFLEX 4 HR DRAW NOW
[2017-01-30] VITALS: BP 102/54
[2017-01-30 07:04] LABS: ALBUMIN 3.4 gm/dl (3.1-4.5); ALKALINE PHOSPHATASE 57 U/L (45-117); BILIRUBIN, TOTAL 0.4 mg/dl (0.2-1.0); BUN 9 mg/dl (7-24); CARBON DIOXIDE 27 mmol/L (21-32); CHLORIDE 106 mmol/L (98-107); CHOLESTEROL 212 mg/dL (<200); EST GLOM FILT AFRICAN AMERICAN > 60 ml/min; GLUCOSE 108 mg/dL (65-99); HDL CHOLESTEROL 95 mg/dl (40-60); LDL CHOLESTEROL 101 mg/dL (9-159); PHOSPHOROUS 3.4 mg/dL (2.5-4.9); POTASSIUM 4.2 mmol/L (3.5-5.1); SGOT/AST 11 IU/L (3-35); SGPT/ALT 19 U/L (12-78); SODIUM 143 mmol/L (136-145); TOTAL PROTEIN 6.8 gm/dL (6.4-8.2); TRIGLYCERIDES 79 mg/dl (<150); VLDL CHOLESTEROL 16 mg/dL (6-40)
[2017-01-30 07:08] LABS: HEMATOCRIT 37.5 % (37.0-47.0); HEMOGLOBIN 11.7 g/dl (12.0-16.0); MEAN CELL VOLUME 113.3 fl (81.0-99.0); MEAN CORPUSCULAR HGB 35.3 pg (27.0-31.0); MEAN CORPUSCULAR HGB CONC 31.2 g/dl (33.0-37.0); MEAN PLATELET VOLUME 12.3 fl (9.6-12.3); PLATELET COUNT AUTOMATED 255 10*3/uL (130-400); RED BLOOD COUNT 3.31 10*6/uL (4.10-5.10); RED CELL DISTRI WIDTH 11.9 % (0-14.5); WHITE BLOOD COUNT 6.7 10*3/uL (4.8-10.8)
[2017-01-30 07:25] LABS: PROTHROMBIN TIME 10.7 SECONDS (9.0-12.4)
[2017-01-30 07:33] LABS: LYMPHOCYTE # 0.7 10*3/uL (1.3-4.4); METAMYELOCYTES 1 % (0-0); MONOCYTE # 0.1 10*3/uL (0.1-1.0); NEUTROPHIL # 5.8 10*3/uL (2.3-7.9); NEUTROPHILS 86 % (47-73); TOTAL CELLS COUNTED 100 #CELLS
[2017-01-30 07:34] LABS: PLATELET SUFFICIENCY NORMAL (NORMAL)
[2017-01-30 08:00] VITALS: BP 118/64
[2017-01-30 08:12] LABS: VITAMIN D, 25-HYDROXY 6.1 ng/mL (30-100)
[2017-01-30 08:13] LABS: FOLIC ACID 9.12 ng/mL (>5.38)
[2017-01-30 11:53] VITALS: BP 107/51
[2017-01-30 16:00] VITALS: BP 109/88
[2017-01-30 20:00] VITALS: BP 112/80
[2017-01-31] VITALS: BP 106/57
[2017-01-31 08:00] VITALS: BP 104/50
[2017-01-31 12:00] VITALS: BP 106/52
[2017-01-31 16:00] VITALS: BP 100/54
[2017-02-01] VITALS: BP 116/66
[2017-02-01 08:00] VITALS: BP 119/56
[2017-02-01 12:00] VITALS: BP 95/73
[2017-02-01 16:00] VITALS: BP 87/69
[2017-02-02] VITALS: BP 122/74
[2017-02-02 06:00] LABS: HEMOGLOBIN 11.5 g/dl (12.0-16.0); MEAN CELL VOLUME 112.5 fl (81.0-99.0); MEAN CORPUSCULAR HGB CONC 31.1 g/dl (33.0-37.0); MEAN PLATELET VOLUME 12.1 fl (9.6-12.3); PLATELET COUNT AUTOMATED 250 10*3/uL (130-400); RED BLOOD COUNT 3.29 10*6/uL (4.10-5.10); RED CELL DISTRI WIDTH 12.5 % (0-14.5)
[2017-02-02 06:04] LABS: EST GLOM FILT AFRICAN AMERICAN > 60 ml/min
[2017-02-02 06:46] LABS: LYMPHOCYTE # 0.4 10*3/uL (1.3-4.4); MONOCYTE # 0.2 10*3/uL (0.1-1.0); NEUTROPHIL # 7.4 10*3/uL (2.3-7.9); NEUTROPHILS 92 % (47-73); PLATELET SUFFICIENCY NORMAL (NORMAL); TOTAL CELLS COUNTED 100 #CELLS
[2017-02-02 08:00] VITALS: BP 99/83
[2017-02-02] MEDS ORDERED: ZITHROMAX500 MG PO (10:16)
[2017-02-02] MEDS ORDERED: PREDNISONE10 MG PO (10:16)
[2017-02-02] MEDS ORDERED: Vitamin D PO (10:16)
[2017-02-02] MEDS ORDERED: MAG-AL PLUS 3030 ML PO (11:51)
[2017-02-02] MEDS ORDERED: DUONEB 3 MG/3 ML3 M1 NEB (11:51)
[2017-02-02 12:00] VITALS: BP 84/66
[2017-02-02 16:00] VITALS: BP 104/75
== END 2017-02-02 16:59 | disposition home or self-care (01) | DRG 871 ==
LOC: ED 15:27 → 5E 17:52 → EDHOLD 17:52 → 5E 18:41
PROVIDERS: Internal Medicine; Physician Assistant
DX: A41.9 Sepsis, unspecified organism (principal); J18.9 Pneumonia, unspecified organism; J96.10 Chronic respiratory failure, unspecified whether with hypoxia or hypercapnia; I50.9 Heart failure, unspecified; J44.0 Chronic obstructive pulmonary disease with (acute) lower respiratory infection; Z99.81 Dependence on supplemental oxygen; E44.1 Mild protein-calorie malnutrition; J44.1 Chronic obstructive pulmonary disease with (acute) exacerbation; R65.20 Severe sepsis without septic shock; Z51.5 Encounter for palliative care; K21.9 Gastro-esophageal reflux disease without esophagitis; E55.9 Vitamin D deficiency, unspecified; D64.9 Anemia, unspecified; F17.210 Nicotine dependence, cigarettes, uncomplicated; D72.810 Lymphocytopenia; Z87.11 Personal history of peptic ulcer disease; Z88.4 Allergy status to anesthetic agent; Z71.6 Tobacco abuse counseling; Z82.49 Family history of ischemic heart disease and other diseases of the circulatory system

== ENCOUNTER 2017-02-16 13:29 | Emergency (ER) | payer SELFPAY ==
[~2017-02-16] VITALS: Ht 162.5 cm; Wt 49.9 kg
[~2017-02-16 13:29] MED LIST changes: +DUONEB 3 MG/3 ML3 M1 NEB; +MAG-AL PLUS 3030 ML PO; +Vitamin D PO; +ZITHROMAX500 MG PO
[2017-02-16 16:08] LABS: BILIRUBIN NEGATIVE (NEGATIVE); BLOOD 1+ (NEGATIVE); CLARITY SL CLOUDY (CLEAR); COLOR YELLOW (YELLOW); GLUCOSE NEGATIVE (NEGATIVE); KETONE NEGATIVE (NEGATIVE); LEUKO ESTERASE NEGATIVE (NEGATIVE); NITRITE NEGATIVE (NEGATIVE); SPECIFIC GRAVITY 1.025 (1.005-1.030); UROBILINOGEN 0.2 E.U./dl (0.2-1.0)
[2017-02-16 16:18] LABS: HYALINE CAST 0-2
[2017-02-16] MEDS ORDERED: NORCO 5-325 TA1 EACH PO (18:09)
== END 2017-02-16 18:24 | disposition home or self-care (01) ==
LOC: ED 13:29
PROVIDERS: Nurse Practitioner Family
DX: S22.080A Wedge compression fracture of T11-T12 vertebra, initial encounter for closed fracture (principal); J44.9 Chronic obstructive pulmonary disease, unspecified; F17.200 Nicotine dependence, unspecified, uncomplicated; Z88.6 Allergy status to analgesic agent; W19.XXXA Unspecified fall, initial encounter; Y93.9 Activity, unspecified; Y92.009 Unspecified place in unspecified non-institutional (private) residence as the place of occurrence of the external cause; Y99.9 Unspecified external cause status

== ENCOUNTER 2017-10-12 16:04 | Inpatient (IN) | payer SELFPAY ==
[~2017-10-12] VITALS: Ht 149.9 cm; Wt 34.0 kg
[~2017-10-12 16:04] MED LIST changes: +NORCO 5-325 TA1 EACH PO
[2017-10-12 16:05] VITALS: BP 143/92
[2017-10-12 16:44] VITALS: BP 117/57
[2017-10-12 17:34] LABS: HEMATOCRIT 42.7 % (37.0-47.0); HEMOGLOBIN 12.9 g/dl (12.0-16.0); MEAN CELL VOLUME 113.6 fl (81.0-99.0); MEAN CORPUSCULAR HGB 34.3 pg (27.0-31.0); MEAN CORPUSCULAR HGB CONC 30.2 g/dl (33.0-37.0); MEAN PLATELET VOLUME 11.6 fl (9.6-12.3); PLATELET COUNT AUTOMATED 328 10*3/uL (130-400); RED BLOOD COUNT 3.76 10*6/uL (4.10-5.10); RED CELL DISTRI WIDTH 11.3 % (0-14.5); WHITE BLOOD COUNT 11.2 10*3/uL (4.8-10.8)
[2017-10-12 17:42] LABS: INTERNATIONAL NORM RATIO 0.9 (2.0-3.5)
[2017-10-12 17:51] LABS: ALBUMIN 3.8 gm/dl (3.1-4.5); ALKALINE PHOSPHATASE 134 U/L (45-117); BUN 9 mg/dl (7-24); CHLORIDE 101 mmol/L (98-107); POTASSIUM 3.9 mmol/L (3.5-5.1); SGOT/AST 18 IU/L (3-35); SGPT/ALT 15 U/L (12-78); SODIUM 140 mmol/L (136-145)
[2017-10-12 17:53] LABS: TROPONIN I < 0.015 ng/ml (<0.045)
[2017-10-12 17:54] LABS: PLATELET SUFFICIENCY NORMAL (NORMAL); TOTAL CELLS COUNTED 100 #CELLS
[2017-10-12 17:55] LABS: STOMATOCYTE MODERATE
[2017-10-12 18:14] VITALS: BP 120/60
[2017-10-12 18:55] VITALS: BP 143/71
[2017-10-12] MEDS ORDERED: DUONEB 3 MG/3 ML3 M1 INH (19:13)
[2017-10-13] VITALS: BP 143/71
[2017-10-13 02:16] LABS: BILIRUBIN NEGATIVE (NEGATIVE); BLOOD 2+ (NEGATIVE); CLARITY CLEAR (CLEAR); COLOR YELLOW (YELLOW); GLUCOSE NEGATIVE (NEGATIVE); KETONE NEGATIVE (NEGATIVE); LEUKO ESTERASE NEGATIVE (NEGATIVE); NITRITE NEGATIVE (NEGATIVE); UROBILINOGEN 0.2 E.U./dl (0.2-1.0)
[2017-10-13 02:55] LABS: EPITHELIAL CELLS 0-5; WBC 0-2 wbc/hpf (0-5)
[2017-10-13 07:24] LABS: HEMATOCRIT 38.8 % (37.0-47.0); MEAN CELL VOLUME 112.8 fl (81.0-99.0); MEAN CORPUSCULAR HGB 34.9 pg (27.0-31.0); MEAN CORPUSCULAR HGB CONC 30.9 g/dl (33.0-37.0); MEAN PLATELET VOLUME 11.9 fl (9.6-12.3); PLATELET COUNT AUTOMATED 289 10*3/uL (130-400); RED BLOOD COUNT 3.44 10*6/uL (4.10-5.10); RED CELL DISTRI WIDTH 11.4 % (0-14.5); WHITE BLOOD COUNT 6.7 10*3/uL (4.8-10.8)
[2017-10-13 07:36] LABS: BUN 10 mg/dl (7-24); CHLORIDE 105 mmol/L (98-107); POTASSIUM 4.2 mmol/L (3.5-5.1); SODIUM 141 mmol/L (136-145); TRIGLYCERIDES 62 mg/dl (<150); VLDL CHOLESTEROL 12 mg/dL (6-40)
[2017-10-13 07:43] LABS: ALBUMIN 3.1 gm/dl (3.1-4.5); ALKALINE PHOSPHATASE 113 U/L (45-117); CHOLESTEROL 174 mg/dL (<200); CREATININE 0.63 mg/dL (0.55-1.02); FREE T4 1.12 ng/dl (0.76-1.46); HDL CHOLESTEROL 74 mg/dl (40-60); LDL CHOLESTEROL 88 mg/dL (9-159); PHOSPHOROUS 3.4 mg/dL (2.5-4.9); SGOT/AST 27 IU/L (3-35); SGPT/ALT 15 U/L (12-78); THYROID STIM HORMONE (HS) 0.368 uIU/ml (0.358-4.75); TOTAL PROTEIN 7.1 gm/dL (6.4-8.2)
[2017-10-13 07:56] LABS: ACT PARTIAL THROMBO TIME 25.9 SECONDS (20.8-31.5)
[2017-10-13 07:58] LABS: PLATELET SUFFICIENCY NORMAL (NORMAL); TOTAL CELLS COUNTED 100 #CELLS
[2017-10-13 08:00] VITALS: BP 110/62; BP 170/88
[2017-10-13 08:30] LABS: VITAMIN D, 25-HYDROXY 10.2 ng/mL (30-100)
[2017-10-13 16:00] VITALS: BP 109/48
[2017-10-13 20:00] VITALS: BP 134/67
[2017-10-14] VITALS: BP 117/59
[2017-10-14 06:17] LABS: HEMATOCRIT 39.1 % (37.0-47.0); MEAN CORPUSCULAR HGB 34.4 pg (27.0-31.0); MEAN CORPUSCULAR HGB CONC 30.7 g/dl (33.0-37.0); MEAN PLATELET VOLUME 12.1 fl (9.6-12.3); PLATELET COUNT AUTOMATED 276 10*3/uL (130-400); RED BLOOD COUNT 3.49 10*6/uL (4.10-5.10); RED CELL DISTRI WIDTH 11.4 % (0-14.5); WHITE BLOOD COUNT 9.7 10*3/uL (4.8-10.8)
[2017-10-14 06:32] LABS: BUN 16 mg/dl (7-24); CHLORIDE 104 mmol/L (98-107); CREATININE 0.49 mg/dL (0.55-1.02); POTASSIUM 4.8 mmol/L (3.5-5.1); SODIUM 140 mmol/L (136-145)
[2017-10-14 07:35] LABS: PLATELET SUFFICIENCY NORMAL (NORMAL); TOTAL CELLS COUNTED 100 #CELLS
[2017-10-14 08:00] VITALS: BP 118/77
[2017-10-14 16:00] VITALS: BP 150/70
[2017-10-14 20:00] VITALS: BP 116/44
[2017-10-15 00:14] VITALS: BP 113/61
[2017-10-15 08:00] VITALS: BP 152/84
[2017-10-15 12:00] VITALS: BP 134/70
[2017-10-15 16:00] VITALS: BP 112/51
[2017-10-15 20:00] VITALS: BP 125/56
[2017-10-16] VITALS: BP 126/54
[2017-10-16 08:00] VITALS: BP 128/53
[2017-10-16 12:00] VITALS: BP 128/51
[2017-10-16 16:00] VITALS: BP 101/51
[2017-10-16 20:00] VITALS: BP 135/54
[2017-10-17] VITALS: BP 120/63
[2017-10-17 06:54] LABS: HEMATOCRIT 37.9 % (37.0-47.0); MEAN CELL VOLUME 110.2 fl (81.0-99.0); MEAN CORPUSCULAR HGB 34.9 pg (27.0-31.0); MEAN CORPUSCULAR HGB CONC 31.7 g/dl (33.0-37.0); PLATELET COUNT AUTOMATED 274 10*3/uL (130-400); RED BLOOD COUNT 3.44 10*6/uL (4.10-5.10); RED CELL DISTRI WIDTH 11.6 % (0-14.5)
[2017-10-17 07:02] LABS: CREATININE 0.44 mg/dL (0.55-1.02)
[2017-10-17 08:00] VITALS: BP 125/95
[2017-10-17 08:18] LABS: PLATELET SUFFICIENCY NORMAL (NORMAL); TOTAL CELLS COUNTED 100 #CELLS
[2017-10-17 12:00] VITALS: BP 136/86
[2017-10-17 16:00] VITALS: BP 130/72
[2017-10-17 20:00] VITALS: BP 120/75
[2017-10-18] VITALS: BP 118/59
[2017-10-18 06:41] LABS: HEMATOCRIT 43.1 % (37.0-47.0); HEMOGLOBIN 13.4 g/dl (12.0-16.0); MEAN CELL VOLUME 109.7 fl (81.0-99.0); MEAN CORPUSCULAR HGB 34.1 pg (27.0-31.0); MEAN CORPUSCULAR HGB CONC 31.1 g/dl (33.0-37.0); MEAN PLATELET VOLUME 12.9 fl (9.6-12.3); PLATELET COUNT AUTOMATED 249 10*3/uL (130-400); RED BLOOD COUNT 3.93 10*6/uL (4.10-5.10); RED CELL DISTRI WIDTH 11.5 % (0-14.5); WHITE BLOOD COUNT 7.4 10*3/uL (4.8-10.8)
[2017-10-18 07:13] LABS: TOTAL CELLS COUNTED 100 #CELLS
[2017-10-18 07:14] LABS: PLATELET SUFFICIENCY NORMAL (NORMAL)
[2017-10-18 07:14] LABS: BUN 21 mg/dl (7-24); CHLORIDE 95 mmol/L (98-107); CREATININE 0.65 mg/dL (0.55-1.02); POTASSIUM 4.6 mmol/L (3.5-5.1); SODIUM 135 mmol/L (136-145)
[2017-10-18 08:00] VITALS: BP 130/42
[2017-10-18 12:00] VITALS: BP 104/68
[2017-10-18 16:00] VITALS: BP 113/69
[2017-10-18 20:00] VITALS: BP 126/63
[2017-10-19] VITALS (18 sets, daily range): BP systolic 98–151; BP diastolic 68–96
[2017-10-20] VITALS: BP 129/80
[2017-10-20 08:00] VITALS: BP 115/70
[2017-10-20 12:00] VITALS: BP 116/72
[2017-10-20 16:00] VITALS: BP 118/77
[2017-10-20 20:00] VITALS: BP 126/62
[2017-10-21 00:07] VITALS: BP 101/66
[2017-10-21 04:00] VITALS: BP 131/68
[2017-10-21 07:25] LABS: CREATININE 0.64 mg/dL (0.55-1.02)
[2017-10-21 07:48] LABS: HEMATOCRIT 42.3 % (37.0-47.0); HEMOGLOBIN 13.5 g/dl (12.0-16.0); MEAN CELL VOLUME 109.3 fl (81.0-99.0); MEAN CORPUSCULAR HGB 34.9 pg (27.0-31.0); MEAN CORPUSCULAR HGB CONC 31.9 g/dl (33.0-37.0); MEAN PLATELET VOLUME 12.5 fl (9.6-12.3); PLATELET COUNT AUTOMATED 270 10*3/uL (130-400); RED BLOOD COUNT 3.87 10*6/uL (4.10-5.10); RED CELL DISTRI WIDTH 11.7 % (0-14.5); WHITE BLOOD COUNT 12.4 10*3/uL (4.8-10.8)
[2017-10-21 08:00] VITALS: BP 119/62
[2017-10-21 08:14] LABS: PLASMA CELL 1 % (0-0); TOTAL CELLS COUNTED 100 #CELLS
[2017-10-21 08:15] LABS: PLATELET SUFFICIENCY NORMAL (NORMAL)
[2017-10-21] MEDS ORDERED: MIRALAX POWDER17 G1 PO (08:35)
[2017-10-21] MEDS ORDERED: Vitamin D PO (08:35)
[2017-10-21] MEDS ORDERED: MUCINEX ER600 MG PO (08:35)
[2017-10-21] MEDS ORDERED: DULE1ARO INH (08:35)
[2017-10-21] MEDS ORDERED: OXYCODONE10 MG/0.5 PO (08:35)
[2017-10-21] MEDS ORDERED: PREDNISONE10 MG PO (08:35)
[2017-10-21 12:00] VITALS: BP 120/60
== END 2017-10-21 15:41 | disposition home or self-care (01) | DRG 853 ==
LOC: ED 16:04 → EDHOLD 18:16 → 4E 18:16
PROVIDERS: Emergency Medicine; Family Medicine; Internal Medicine; Internal Medicine Hospice and Palliative Medicine; Physician Assistant
PROC: 0QU03JZ Supplement Lumbar Vertebra with Synthetic Substitute, Percutaneous Approach (ICD-10-PCS; principal; 2017-10-18)
PROC: 0QS03ZZ Reposition Lumbar Vertebra, Percutaneous Approach (ICD-10-PCS; principal; 2017-10-18)
DX: A41.9 Sepsis, unspecified organism (principal); J18.9 Pneumonia, unspecified organism; J96.11 Chronic respiratory failure with hypoxia; E44.0 Moderate protein-calorie malnutrition; S32.020A Wedge compression fracture of second lumbar vertebra, initial encounter for closed fracture; J44.0 Chronic obstructive pulmonary disease with (acute) lower respiratory infection; E83.41 Hypermagnesemia; J44.1 Chronic obstructive pulmonary disease with (acute) exacerbation; Z68.1 Body mass index [BMI] 19.9 or less, adult; D72.810 Lymphocytopenia; R06.09 Other forms of dyspnea; D75.89 Other specified diseases of blood and blood-forming organs; M48.54XD Collapsed vertebra, not elsewhere classified, thoracic region, subsequent encounter for fracture with routine healing; R73.9 Hyperglycemia, unspecified; F32.9 Major depressive disorder, single episode, unspecified; S61.412A Laceration without foreign body of left hand, initial encounter; X58.XXXA Exposure to other specified factors, initial encounter; D64.9 Anemia, unspecified; F41.9 Anxiety disorder, unspecified; R65.20 Severe sepsis without septic shock; R63.6 Underweight; F17.210 Nicotine dependence, cigarettes, uncomplicated; Z88.6 Allergy status to analgesic agent; Z79.899 Other long term (current) drug therapy; Z82.49 Family history of ischemic heart disease and other diseases of the circulatory system; Z99.81 Dependence on supplemental oxygen; Y93.89 Activity, other specified; Y92.89 Other specified places as the place of occurrence of the external cause; Y99.8 Other external cause status

== ENCOUNTER 2017-11-16 11:53 | Inpatient (IN) | payer SELFPAY ==
[~2017-11-16] VITALS: Ht 149.9 cm; Wt 37.7 kg
[~2017-11-16 11:53] MED LIST changes: +DULE1ARO INH; +DUONEB 3 MG/3 ML3 M1 INH; +MIRALAX POWDER17 G1 PO; +MUCINEX ER600 MG PO; +OXYCODONE10 MG/0.5 PO
[2017-11-16 11:59] VITALS: BP 106/71
[2017-11-16 12:40] VITALS: BP 100/61
[2017-11-16 12:58] LABS: HEMATOCRIT 42.6 % (37.0-47.0); HEMOGLOBIN 13.3 g/dl (12.0-16.0); MEAN CELL VOLUME 112.7 fl (81.0-99.0); MEAN CORPUSCULAR HGB 35.2 pg (27.0-31.0); MEAN CORPUSCULAR HGB CONC 31.2 g/dl (33.0-37.0); MEAN PLATELET VOLUME 11.1 fl (9.6-12.3); PLATELET COUNT AUTOMATED 424 10*3/uL (130-400); RED BLOOD COUNT 3.78 10*6/uL (4.10-5.10); RED CELL DISTRI WIDTH 12.8 % (0-14.5); WHITE BLOOD COUNT 11.7 10*3/uL (4.8-10.8)
[2017-11-16 13:13] LABS: ALBUMIN 2.9 gm/dl (3.1-4.5); ALKALINE PHOSPHATASE 112 U/L (45-117); BUN 21 mg/dl (7-24); CHLORIDE 103 mmol/L (98-107); SGOT/AST 24 IU/L (3-35); SGPT/ALT 15 U/L (12-78); SODIUM 143 mmol/L (136-145); TOTAL PROTEIN 6.8 gm/dL (6.4-8.2)
[2017-11-16 13:15] VITALS: BP 100/66
[2017-11-16 13:15] LABS: PLATELET SUFFICIENCY HIGH (NORMAL); POLYCHROMASIA SLIGHT; TOTAL CELLS COUNTED 100 #CELLS
[2017-11-16 16:00] VITALS: BP 95/59
[2017-11-16] MEDS ORDERED: PULMICORT RESP0.5 MG INH (16:16)
[2017-11-16 20:00] VITALS: BP 87/51
[2017-11-16 20:30] VITALS: BP 96/60
[2017-11-17] VITALS: BP 105/55
[2017-11-17 08:00] VITALS: BP 102/64
[2017-11-17 08:00] LABS: HEMATOCRIT 40.3 % (37.0-47.0); HEMOGLOBIN 12.4 g/dl (12.0-16.0); MEAN CORPUSCULAR HGB 34.2 pg (27.0-31.0); MEAN CORPUSCULAR HGB CONC 30.8 g/dl (33.0-37.0); MEAN PLATELET VOLUME 11.7 fl (9.6-12.3); PLATELET COUNT AUTOMATED 407 10*3/uL (130-400); RED BLOOD COUNT 3.63 10*6/uL (4.10-5.10); RED CELL DISTRI WIDTH 12.6 % (0-14.5); WHITE BLOOD COUNT 15.4 10*3/uL (4.8-10.8)
[2017-11-17 08:22] LABS: PLATELET SUFFICIENCY NORMAL (NORMAL); TOTAL CELLS COUNTED 100 #CELLS
[2017-11-17 08:28] LABS: BUN 21 mg/dl (7-24); CHLORIDE 105 mmol/L (98-107); CREATININE 0.41 mg/dL (0.55-1.02); PHOSPHOROUS 2.6 mg/dL (2.5-4.9); POTASSIUM 4.1 mmol/L (3.5-5.1); SODIUM 142 mmol/L (136-145)
[2017-11-17 12:00] VITALS: BP 104/66
[2017-11-17] MEDS ORDERED: MIRALAX POWDER17 G1 PO (15:02)
[2017-11-17 16:00] VITALS: BP 106/64
[2017-11-17 20:00] VITALS: BP 91/50
[2017-11-18] VITALS: BP 100/52
[2017-11-18 08:00] VITALS: BP 87/33
[2017-11-18 12:00] VITALS: BP 90/48
== END 2017-11-18 14:05 | disposition home or self-care (01) | DRG 191 ==
LOC: ED 11:53 → 5E 14:57 → EDHOLD 14:57 → 5E 15:15
PROVIDERS: Internal Medicine; Nurse Practitioner Family
DX: J44.1 Chronic obstructive pulmonary disease with (acute) exacerbation (principal); E87.3 Alkalosis; E44.0 Moderate protein-calorie malnutrition; J96.11 Chronic respiratory failure with hypoxia; Z68.1 Body mass index [BMI] 19.9 or less, adult; R19.7 Diarrhea, unspecified; R00.0 Tachycardia, unspecified; D47.3 Essential (hemorrhagic) thrombocythemia; D75.89 Other specified diseases of blood and blood-forming organs; Z99.81 Dependence on supplemental oxygen; Z91.14 Patient's other noncompliance with medication regimen; Z88.6 Allergy status to analgesic agent; Z79.899 Other long term (current) drug therapy; Z87.891 Personal history of nicotine dependence; Z82.49 Family history of ischemic heart disease and other diseases of the circulatory system

== ENCOUNTER 2018-05-24 14:03 | Inpatient (IN) | payer SELFPAY ==
[~2018-05-24] VITALS: Ht 149.8 cm; Wt 37.5 kg
--- NOTE | ~2018-05-24 | EKG ---
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[employer] : 1955 Requested By: NOHELIA QUESADA Order Number: [id number] Reading MD: Jennifer Briggs MD Measurements Intervals [place] Rate: 133 P: 87 [place]: 128 QRS: 69 QRSD: 119 T: 225 QT: 284 QTc: 423 Interpretive Statements Sinus tachycardia Ventricular bigeminy LVH with secondary repolarization abnormality Anterior infarct, old Compared to ECG 05/24/2018 14:58:50 Ventricular premature complex(es) now present Left ventricular hypertrophy now present Early repolarization now present Myocardial infarct finding now present Electronically Signed On 05-27-2018 8:48:25 PST by Jennifer Briggs MD CM:EKGRPT:ELECTROCARDIOGRAM REPORT 1625 0848 NOHELIA GARCIA DRAFT REPORT NOHELIA QUESADA DO
--- NOTE | ~2018-05-24 | EKG ---
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
--- NOTE | ~2018-05-24 | EKG ---
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
--- NOTE | ~2018-05-24 | EKG ---
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
--- NOTE | ~2018-05-24 | EKG ---
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
[2018-05-24 14:03] VITALS: BP 100/66
[~2018-05-24 14:03] MED LIST changes: +HYDROCODONE-AC1 EAC1 PO; +PULMICORT RESP0.5 MG NEB; +VITAMIN D5000 UNI1 PO
[2018-05-24 15:02] LABS: HEMATOCRIT 39.9 % (37.0-47.0); MEAN CELL VOLUME 112.7 fl (81.0-99.0); MEAN CORPUSCULAR HGB 33.9 pg (27.0-31.0); MEAN CORPUSCULAR HGB CONC 30.1 g/dl (33.0-37.0); MEAN PLATELET VOLUME 12.5 fl (9.6-12.3); PLATELET COUNT AUTOMATED 227 10*3/uL (130-400); RED BLOOD COUNT 3.54 10*6/uL (4.10-5.10); RED CELL DISTRI WIDTH 12.7 % (0-14.5); WHITE BLOOD COUNT 7.1 10*3/uL (4.8-10.8)
[2018-05-24 15:10] LABS: ACT PARTIAL THROMBO TIME 25.1 SECONDS (20.8-31.5)
[2018-05-24 15:14] LABS: ALBUMIN 3.6 gm/dl (3.1-4.5); ALKALINE PHOSPHATASE 110 U/L (45-117); BUN 14 mg/dl (7-24); CHLORIDE 100 mmol/L (98-107); CREATININE 0.49 mg/dL (0.55-1.02); POTASSIUM 4.6 mmol/L (3.5-5.1); SGOT/AST 18 IU/L (3-35); SGPT/ALT 12 U/L (12-78); SODIUM 142 mmol/L (136-145); TOTAL PROTEIN 7.2 gm/dL (6.4-8.2)
[2018-05-24 15:22] LABS: TROPONIN I < 0.015 ng/ml (<0.045)
[2018-05-24 15:23] LABS: BASOPHILS 1 % (0-1); TOTAL CELLS COUNTED 100 #CELLS
[2018-05-24 15:24] LABS: PLATELET SUFFICIENCY NORMAL (NORMAL)
[2018-05-24 15:32] LABS: LIPASE 212 U/L (73-393)
[2018-05-24 15:33] LABS: BILIRUBIN NEGATIVE (NEGATIVE); BLOOD TRACE-INTACT (NEGATIVE); CLARITY SL CLOUDY (CLEAR); COLOR YELLOW (YELLOW); GLUCOSE NEGATIVE (NEGATIVE); KETONE NEGATIVE (NEGATIVE); LEUKO ESTERASE 1+ (NEGATIVE); NITRITE NEGATIVE (NEGATIVE); PH 7.5 (5.0-9.0); SPECIFIC GRAVITY 1.015 (1.005-1.030)
[2018-05-24 15:47] LABS: MUCOUS TRACE
[2018-05-24 16:05] VITALS: BP 108/64
[2018-05-24 18:05] VITALS: BP 106/82
[2018-05-24] MEDS ORDERED: Ipratropium Brom3 ML NEB (18:17)
[2018-05-24] MEDS ORDERED: OXYGEN NAS (18:19)
[2018-05-24 18:30] VITALS: BP 149/59
[2018-05-25] VITALS: BP 105/54
[2018-05-25 06:58] LABS: MEAN CELL VOLUME 113.8 fl (81.0-99.0); MEAN CORPUSCULAR HGB 33.3 pg (27.0-31.0); MEAN CORPUSCULAR HGB CONC 29.3 g/dl (33.0-37.0); MEAN PLATELET VOLUME 12.4 fl (9.6-12.3); PLATELET COUNT AUTOMATED 201 10*3/uL (130-400); RED BLOOD COUNT 2.97 10*6/uL (4.10-5.10); RED CELL DISTRI WIDTH 12.9 % (0-14.5); WHITE BLOOD COUNT 2.6 10*3/uL (4.8-10.8)
[2018-05-25 07:07] LABS: HEMATOCRIT 33.8 % (37.0-47.0); HEMOGLOBIN 9.9 g/dl (12.0-16.0)
[2018-05-25 07:18] LABS: ATYPICAL LYMPHS 1 % (0-0); PLATELET SUFFICIENCY NORMAL (NORMAL); TOTAL CELLS COUNTED 100 #CELLS
[2018-05-25 07:27] LABS: CHLORIDE 106 mmol/L (98-107); POTASSIUM 4.3 mmol/L (3.5-5.1); SODIUM 142 mmol/L (136-145)
[2018-05-25 07:43] LABS: ALBUMIN 2.9 gm/dl (3.1-4.5); ALKALINE PHOSPHATASE 87 U/L (45-117); BUN 8 mg/dl (7-24); CHOLESTEROL 143 mg/dL (<200); FREE T4 0.96 ng/dl (0.76-1.46); HDL CHOLESTEROL 70 mg/dl (40-60); LDL CHOLESTEROL 60 mg/dL (9-159); PHOSPHOROUS 3.6 mg/dL (2.5-4.9); SGOT/AST 12 IU/L (3-35); SGPT/ALT 10 U/L (12-78); THYROID STIM HORMONE (HS) 0.171 uIU/ml (0.358-4.75); TOTAL PROTEIN 6.1 gm/dL (6.4-8.2); TRIGLYCERIDES 65 mg/dl (<150); VLDL CHOLESTEROL 13 mg/dL (6-40)
[2018-05-25 07:48] LABS: VITAMIN D, 25-HYDROXY 31.8 ng/mL (30-100)
[2018-05-25 12:00] VITALS: BP 82/56
[2018-05-25 16:00] VITALS: BP 104/60
[2018-05-25 20:00] VITALS: BP 89/69; BP 94/62
[2018-05-25 21:50] VITALS: BP 100/64
[2018-05-26] VITALS: BP 98/58
[2018-05-26 05:57] LABS: HEMOGLOBIN 10.4 g/dl (12.0-16.0); MEAN CELL VOLUME 112.9 fl (81.0-99.0); MEAN CORPUSCULAR HGB 33.5 pg (27.0-31.0); MEAN CORPUSCULAR HGB CONC 29.7 g/dl (33.0-37.0); MEAN PLATELET VOLUME 12.3 fl (9.6-12.3); PLATELET COUNT AUTOMATED 205 10*3/uL (130-400); RED CELL DISTRI WIDTH 13.2 % (0-14.5); WHITE BLOOD COUNT 5.6 10*3/uL (4.8-10.8)
[2018-05-26 06:03] LABS: ALKALINE PHOSPHATASE 82 U/L (45-117); BUN 8 mg/dl (7-24); CHLORIDE 108 mmol/L (98-107); CREATININE 0.38 mg/dL (0.55-1.02); LIPASE 95 U/L (73-393); POTASSIUM 4.4 mmol/L (3.5-5.1); SGOT/AST 8 IU/L (3-35); SGPT/ALT 10 U/L (12-78); SODIUM 143 mmol/L (136-145); TOTAL PROTEIN 6.1 gm/dL (6.4-8.2)
[2018-05-26 06:27] LABS: PLATELET SUFFICIENCY NORMAL (NORMAL); TOTAL CELLS COUNTED 100 #CELLS
[2018-05-26 08:00] VITALS: BP 95/72
[2018-05-26 12:00] VITALS: BP 120/57
[2018-05-26 16:00] VITALS: BP 133/79
[2018-05-26 17:21] VITALS: BP 132/115
[2018-05-26 20:00] VITALS: BP 98/56
[2018-05-27] VITALS (7 sets, daily range): BP systolic 94–120; BP diastolic 52–71
[2018-05-27 02:12] LABS: BUN 9 mg/dl (7-24); CHLORIDE 105 mmol/L (98-107); CREATININE 0.48 mg/dL (0.55-1.02); POTASSIUM 4.3 mmol/L (3.5-5.1); SODIUM 148 mmol/L (136-145)
[2018-05-27 02:14] LABS: TROPONIN I < 0.015 ng/ml (<0.045)
[2018-05-27 05:19] LABS: BUN 10 mg/dl (7-24); CHLORIDE 106 mmol/L (98-107); POTASSIUM 4.3 mmol/L (3.5-5.1); SODIUM 145 mmol/L (136-145)
[2018-05-27 05:57] LABS: HEMATOCRIT 33.8 % (37.0-47.0); HEMOGLOBIN 10.1 g/dl (12.0-16.0); MEAN CORPUSCULAR HGB 33.8 pg (27.0-31.0); MEAN CORPUSCULAR HGB CONC 29.9 g/dl (33.0-37.0); MEAN PLATELET VOLUME 12.4 fl (9.6-12.3); PLATELET COUNT AUTOMATED 196 10*3/uL (130-400); RED BLOOD COUNT 2.99 10*6/uL (4.10-5.10); RED CELL DISTRI WIDTH 13.3 % (0-14.5); WHITE BLOOD COUNT 4.1 10*3/uL (4.8-10.8)
[2018-05-27 07:00] LABS: PLATELET SUFFICIENCY NORMAL (NORMAL); TOTAL CELLS COUNTED 100 #CELLS
[2018-05-28] VITALS: BP 111/60
[2018-05-28 08:00] VITALS: BP 110/60
[2018-05-28 16:00] VITALS: BP 111/93
[2018-05-28 19:49] VITALS: BP 126/90
[2018-05-28 20:00] VITALS: BP 111/81
[2018-05-29] VITALS: BP 115/78
[2018-05-29 12:00] VITALS: BP 100/51
[2018-05-29] MEDS ORDERED: DURAGESIC1 EAC1 TD (12:04)
[2018-05-29] MEDS ORDERED: PREDNISONE10 MG PO (12:04)
[2018-05-29] MEDS ORDERED: AVPAK AZITHROM250 MG PO (12:04)
[2018-05-29] MEDS ORDERED: VISTARIL25 MG PO (12:34)
[2018-05-29] MEDS ORDERED: VITAMIN D5000 UNI1 PO (12:34)
[2018-05-29] MEDS ORDERED: Ipratropium Brom3 ML NEB (12:34)
== END 2018-05-29 14:00 | disposition home or self-care (01) | DRG 871 ==
LOC: ED 14:03 → 4E 17:54 → EDHOLD 17:54 → 4E 18:08
PROVIDERS: Family Medicine; Physician Assistant; Student in an Organized Health Care Education/Training Program
DX: A41.9 Sepsis, unspecified organism (principal); J18.9 Pneumonia, unspecified organism; N30.01 Acute cystitis with hematuria; J96.11 Chronic respiratory failure with hypoxia; I47.1 Supraventricular tachycardia; Z68.1 Body mass index [BMI] 19.9 or less, adult; B96.4 Proteus (mirabilis) (morganii) as the cause of diseases classified elsewhere; K21.9 Gastro-esophageal reflux disease without esophagitis; F32.9 Major depressive disorder, single episode, unspecified; F41.9 Anxiety disorder, unspecified; J43.2 Centrilobular emphysema; K80.80 Other cholelithiasis without obstruction; R63.6 Underweight; E55.9 Vitamin D deficiency, unspecified; Z53.29 Procedure and treatment not carried out because of patient's decision for other reasons; Z99.81 Dependence on supplemental oxygen; S22.009G Unspecified fracture of unspecified thoracic vertebra, subsequent encounter for fracture with delayed healing; S32.009G Unspecified fracture of unspecified lumbar vertebra, subsequent encounter for fracture with delayed healing; Z88.6 Allergy status to analgesic agent; Z87.891 Personal history of nicotine dependence; Z82.49 Family history of ischemic heart disease and other diseases of the circulatory system; Z79.899 Other long term (current) drug therapy

== ENCOUNTER 2018-07-30 17:04 | Inpatient (IN) | payer SELFPAY ==
[~2018-07-30] VITALS: Ht 149.8 cm; Wt 31.4 kg
--- NOTE | ~2018-07-30 | PR ---
[place], [place] PROGRESS NOTE NAME: KAVON MEADOWS UNIT #: [id number] ROOM: 406 DOCTOR: PATRICIA DE JESUS MD BIRTHDATE: [birth year] DOS: 08/04/2018 PULMONARY PROGRESS NOTE SUBJECTIVE: The patient is noted comfortable at this time, without any acute distress. The patient has been noted without any ongoing acute change at this time. Use of BiPAP has been noted limited. Shortness of breath however is noted stable, not noted any worsening from yesterday. There are no symptoms of fever or chills. The patient's ambulation and physical mobility appeared to be quite impaired because of advanced COPD. OBJECTIVE: VITAL SIGNS: Normal temperature, respiratory rate 22, heart rate 68, blood pressure 106/60. Pulse oxygen saturation recorded as 100% on 3.5 liters nasal cannula. HEENT: Examination shows head is atraumatic. Eyes nonicterus. NECK: Supple. CARDIOVASCULAR: S1 and S2 audible. LUNGS: Noted without any wheeze or crackles at this time. Breaths are noted mildly diminished bilaterally. ABDOMEN: Soft, nontender. Bowel sounds present. EXTREMITIES: No acute change. IMPRESSION: 1. The patient with ongoing acute exacerbation of chronic obstructive pulmonary disease, acute tracheobronchitis. 2. Severe muscle deconditioning and debility, which is chronic as well. 3. The patient with [id number] hypercapnic hypoxic respiratory failure. PLAN OF TREATMENT: No change in plan of management. Discussion with family members will need to be done about further discharge planning for the patient including consideration of a senior living facility. If they insist of the patient not going there, she could be discharged home possibly in the next day or two on medications and home health nursing. [place], [place] PROGRESS NOTE NAME: KAVON MEADOWS UNIT #: [id number] ROOM: 406 DOCTOR: PATRICIA DE JESUS MD BIRTHDATE: [birth year] PATRICIA LONGO MD CM:PNTRANS 1412 1517 PATRICIA JONES MD 08/04/18 1517 interface
--- NOTE | ~2018-07-30 | EKG ---
[place], [place] ELECTROCARDIOGRAM REPORT NAME: KAVON MEADOWS UNIT #: [id number] ROOM: 520 DOCTOR: WAI DRAFT REPORT BIRTHDATE: [birth year] [facility] Test Date: 2018-07-31 Test Time: 14:44:57 Pat Name: KAVON MEADOWS Department: Room: 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
--- NOTE | ~2018-07-30 | CON ---
[place], [place] REPORT OF CONSULTATION NAME: KAVON MEADOWS [facility] #: [id number] UNIT #: [id number] ROOM: 520 DOCTOR: PATRICIA DE JESUS MD BIRTHDATE: [birth year] DOS: 07/31/2018 PULMONARY CONSULTATION CONSULTATION REQUESTED BY: Hospitalist services. REASON FOR CONSULTATION: To assess for the acute exacerbation of chronic obstructive pulmonary disease. HISTORY OF PRESENT ILLNESS: This is a 63-year-old white female patient who was admitted to the hospital under the care of the hospitalist services on the date of 07/30/2018. The patient presented to the hospital with symptoms of increased shortness of breath. Shortness of breath has been noted with gradual worsening and present for about 3 days or so. The shortness of breath remains as a major symptoms of concern requiring the patient to be assessed in the Emergency Room. The patient came into the hospital. The patient is admitted to the hospital for further care. She denies any symptoms of coughing, wheezing or chest pain. Denies any symptoms of hemoptysis, nausea, vomiting or diarrhea. REVIEW OF SYSTEMS: CONSTITUTIONAL: Fatigue and tiredness noted without any symptoms of fever or chills. EYES: Denies any burning, redness, or tenderness. EARS, NOSE, THROAT SYMPTOMS: Denies sore throat, hoarseness, otalgia, postnasal drainage or epistaxis. CARDIOVASCULAR: Denies any pain, edema, pain of the lower extremities. GASTROINTESTINAL: Dysphagia, nausea, vomiting, abdominal pain, hematemesis, melena, or hematochezia. SKIN: No lesions or rashes. MUSCULOSKELETAL: No acute joint pain, redness, or tenderness. CENTRAL NERVOUS SYSTEM: diplopia, syncopal episodes. Remaining systems were reviewed. They were noted all negative. PAST MEDICAL HISTORY: Known with: 1. History of chronic obstructive pulmonary disease. 2. Chronic hypoxic respiratory failure, use of oxygen supplementation 2 liters nasal cannula continuous at home. 3. General anxiety disorder. 4. Vitamin D deficiency. 5. Low BMI for this patient as well. SOCIAL HISTORY: The patient stated that she is currently . She lives at home. Tobacco use was noted as 1 pack of cigarettes per day, which was discontinued in 2017. Denies any alcohol use or any illicit drug use. PAST SURGICAL HISTORY: Noted with the vertebroplasty compression fracture of the spine. FAMILY HISTORY: The patient's father , history was unknown. Mother at [place], [place] REPORT OF CONSULTATION NAME: KAVON MEADOWS UNIT #: [id number] ROOM: [facility] DOCTOR: DONTA JONES MD,PATRICIA BIRTHDATE: [age] years from complication of congestive heart failure. HOME MEDICATIONS: Noted use of albuterol sulfate with breathing treatments and oxygen supplementation. DRUG PHYSICAL EXAMINATION: GENERAL: This is a 63-year-old female patient currently lying in the bed without any acute distress. Height of 4 feet 11 inches, weight of 69 pounds. The patient's BMI only 14. VITAL SIGNS: Normal temperature, respiratory rate of the patient recorded as 16-20, heart rate 104-102. The blood pressure is 112/56-100/68. Pulse oxygen saturation recorded as 97% on 3 liters cannula. HEENT: Examination shows head was atraumatic. Eyes nonicterus. NECK: Supple. CARDIOVASCULAR: S1, S2 is audible. LUNGS: The patient was noted with decreased breath sounds noted in the lungs bilaterally. There was no wheezing. Crackles heard. ABDOMEN: Soft, nontender, bowel sounds present. EXTREMITIES: The patient was noted without any acute edema, clubbing, cyanosis, loss of muscle mass. SKIN: Visible skin without lesions or rashes. CENTRAL NERVOUS SYSTEM: The patient. General weakness and fatigue. Cranial nerves 2-12 intact without any focal neurologic deficit. LABORATORY DATA: The chest x-ray done for the patient on admission shows severe COPD changes and hyperinflation of the lungs flattening of the diaphragm for patient as well. CMP that was done on 07/30/2018, normal BUN and creatinine. CBC that was done on 07/30/2018, WBC count normal, hemoglobin and hematocrit were normal. Platelet count was normal. PT and PTT up to 17 was normal. CMP that was done on 07/31/2017, normal BUN and creatinine. The CT scan of the abdomen and pelvis, which was done with contrast for the patient. Per radiology's report showed multiple compression fractures, lumbar spine including T12. Suspect constipation. The lower portion of the lungs shows evidence of centrilobular emphysema changes. IMPRESSION: 1. The patient will be admitted to the hospital with increased shortness of breath related to acute exacerbation of chronic obstructive pulmonary disease. Nonspecific abdominal pain reported. CT scan of the abdomen does not show any major issues. 2. Chronic respiratory failure with hypoxia as well. 3. Low BMI with cachexia for patient may be related to advanced disease. PLAN OF TREATMENT: The patient will be continued bronchodilator. DVT prophylaxis, Solu-Medrol 40 mg q.8 hours, dose based on improvement in symptom of shortness breath still noted significant shortness of breath at this time, which has not been resolved. CT scan of the abdomen and pelvis does not show an abdominal pathologies. Constipation was reported. Other therapy, plan of management care to be continued with current medical management, plan of care with addition of treatment change will be done based on progression of the [place], [place] REPORT OF CONSULTATION NAME: KAVON MEADOWS UNIT #: [id number] ROOM: [facility] DOCTOR: PATRICIA DE JESUS MD BIRTHDATE: [birth year] illness. PATRICIA LONGO MD CM:CONSTR:REPORT OF CONSULTATION 1301 07/31/18 1546 interface
--- NOTE | ~2018-07-30 | EKG ---
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
--- NOTE | ~2018-07-30 | PR ---
[place], [place] PROGRESS NOTE NAME: KAVON MEADOWS [facility] #: [id number] UNIT #: [id number] ROOM: 406 DOCTOR: PATRICIA DE JESUS MD BIRTHDATE: [birth year] DOS: 08/03/2018 PULMONARY PROGRESS NOTE SUBJECTIVE: The patient noted comfortable at this time, resting in the bed, noted significantly awake and alert this morning. Does not show signs of coughing, sputum. Does not have symptoms of any chest pain. Shortness of breath has been improving. Coughing and wheezing was also resolving. OBJECTIVE: VITAL SIGNS: Normal temperature, respiratory rate 20, heart rate of 89, blood pressure 108/70. Pulse oxygen saturation on 3 liters nasal cannula 93% saturation. BiPAP was 45% saturation of oxygen. HEENT: Showed no acute change. NECK: Supple. CARDIOVASCULAR: S1, S2 was audible. LUNGS: The patient was noted with moderate decreased breath sounds without any wheezing or crackles today. ABDOMEN: Soft, nontender. Bowel sounds present. EXTREMITIES: Noted without any acute edema. LABORATORY DATA: The BMP that was done 08/03/2018 noted normal BUN and creatinine. CO2 of 37. CBC, WBC count normal, hemoglobin 11.7, platelet count was noted as normal. IMPRESSION: Resolving acute on chronic hypercapnia hypoxic respiratory failure gradually and progressively with acute exacerbation of chronic obstructive pulmonary disease, severe debility as well with protein-calorie malnutrition status. PLAN OF MANAGEMENT: No changes in the plan for the patient at this time except the patient could be transferred to the telemetry floor whenever desired. Bronchodilators. Continue corticosteroids and other therapy, plan of management care and therapies. [place], [place] PROGRESS NOTE NAME: KAVON MEADOWS [facility] #: [id number] UNIT #: [id number] ROOM: 406 DOCTOR: PATRICIA DE JESUS MD BIRTHDATE: [birth year] PATRICIA LONGO MD CM:PNTRANS [id number] PATRICIA JONES MD 08/03/18 1411 interface
--- NOTE | ~2018-07-30 | PR ---
[place], [place] PROGRESS NOTE [id number] UNIT #: [id number] ROOM: 406 DOCTOR: DONTA JONES MD,PATRICIA BIRTHDATE: [birth year] DOS: 08/05/2018 PULMONARY PROGRESS NOTE SUBJECTIVE: The patient was seen and examined on 08/05/2018, has been noted comfortable at this time. Shortness of breath has been noted controlled. She has not been noted symptoms of hemoptysis or chest pain. Denies symptoms of nausea, vomiting or diarrhea. OBJECTIVE: VITAL SIGNS: Normal temperature, respiratory rate 20, heart rate 102, blood pressure 90/63. The pulse ox saturation on 3 liters nasal cannula 100% saturation at rest was noted. HEENT: Examination shows head was atraumatic. Eyes nonicterus. NECK: Supple. CARDIOVASCULAR: S1, S2 is audible. LUNGS: Noted without any crackles. No wheezing. Moderate diminished breath sounds bilaterally. ABDOMEN: Soft, nontender. EXTREMITIES: No new change. IMPRESSION: The patient with advanced chronic obstructive pulmonary disease, acute on chronic hypercapnic hypoxic respiratory failure, resolving with current medical management, slowly. Still noted very debilitated. PLAN OF MANAGEMENT: The patient choose to be discharged home with palliative care, which will be appropriate in her case what appeared to have advanced COPD management. Other supportive therapy, plan of management. Discharge planning could be started any time for the patient discharge to the home setting as agreed upon by the patient and the family members. PATRICIA LONGO MD CM:PNTRANS [phone] PATRICIA JONES MD 08/05/18 1329 interface
--- NOTE | ~2018-07-30 | PR ---
[place], [place] PROGRESS NOTE NAME: KAVON MEADOWS [facility] #: [id number] UNIT #: [id number] ROOM: 520 DOCTOR: DONTA JONES MD,PATRICIA BIRTHDATE: [birth year] DOS: 08/01/2018 SUBJECTIVE: She has been still complaining of symptoms of shortness of breath, stating nasal blockage. Denies symptoms of fever or chills. Denies symptoms of hemoptysis or shortness of breath. The patient denies symptoms of acute cough. Denies symptoms of nausea or vomiting. OBJECTIVE: VITAL SIGNS: Normal temperature, respiratory rate 18, heart rate 102, blood pressure 124/74. Pulse oxygen saturation was recorded as 97% saturation. HEENT: Examination shows head was atraumatic. Eyes nonicterus. NECK: Supple. CARDIOVASCULAR: S1, S2 is audible. LUNGS: The patient was noted without any wheeze or crackles at present time. Breaths are noted mildly diminished bilaterally. ABDOMEN: Soft, nontender, bowel sounds present. EXTREMITIES: No acute change. LABORATORY DATA: The patient's CBC count 11, hemoglobin 10.3, platelet count were normal. BMP this morning, normal BUN and creatinine. IMPRESSION: Stable respiratory status was noted at the present time with acute exacerbation of chronic obstructive pulmonary disease with debility. PLAN OF MANAGEMENT: She was started on the Flonase inhaler to help improve the nasal blockage and congestion. Continue steroids, bronchodilators, and oxygen supplementation. However, the dose of Solu-Medrol will be decreased to 40 mg b.i.d. from 3 times a day dosing. Other plan of treatment changes will be made based on progression of the illness. PATRICIA LONGO MD CM:PNTRANS [id number] PATRICIA JONES MD 08/01/18 1516 interface
--- NOTE | ~2018-07-30 | PR ---
[place], [place] PROGRESS NOTE NAME: KAVON MEADOWS [facility] #: [id number] UNIT #: [id number] ROOM: [place] [address] DOCTOR: DONTA JONES MD,PATRICIA BIRTHDATE: [birth year] DOS: 08/02/2018 PULMONARY PROGRESS NOTE SUBJECTIVE: The patient has been noted increased lethargy confusion status last evening as the patient has been treated on the floor. Arterial blood gas was done for the patient, which shows significant hypercarbia with decreased pH. The patient has been ordered the BiPAP, but the patient was not tolerating it and not using and pulling it off from her face. She has been ordered for transfer to the Intensive Care Unit with current code status. She has been transferred to the Intensive Care Unit. She has not used much of the BiPAP, but the oxygen supplementation used by the patient. She has not been reported any symptoms of chest pain or hemoptysis. This morning, the patient appeared to be awake, alert, oriented in the confusion seems to be better. Denies symptoms of nausea, vomiting, diarrhea or any abdominal pain. The patient denies symptoms of hematemesis or melena. The remaining review of systems for the patient was noted as negative. PHYSICAL EXAMINATION: VITAL SIGNS: For the patient which has been recorded shows normal temperature, respiratory rate 14-18, heart rate 81-58, blood pressure 91/50-112/66. The pulse oxygen saturation was recorded on 3.5 L nasal cannula 97% with the BiPAP 94% saturation previously. HEENT: Head was atraumatic. Eyes nonicterus. NECK: Supple. CARDIOVASCULAR: S1, S2 is audible. LUNGS: The patient was noted with decreased breath sounds in the lungs bilaterally. ABDOMEN: Flat, soft, nontender. Bowel sounds present. EXTREMITIES: Without acute edema. MUSCULOSKELETAL: Noted without any acute deformities. CENTRAL NERVOUS SYSTEM: Cranial nerves 2-12 intact. There are no gross focal neurologic deficit. VISIBLE SKIN: Without any lesions or rashes. Past family, social, surgical history were reviewed remains unchanged since consultation on this admission. LABORATORY DATA: The patient had arterial blood gas done yesterday, pH of 7.23, pCO2 of 76, pO2 of 129. The arterial blood gas that was done this morning on 3.5 liters nasal cannula, pH of 7.33, pCO2 of 62, pO2 of 68.2. CBC of this morning normal hemoglobin and hematocrit, WBC count normal, platelet count were normal. The CMP that was done this morning normal BUN and creatinine. CO2 of 33. The urine culture done on 07/30/2018 shows evidence of Proteus mirabilis, heavy growth. The patient had CTA of the chest done yesterday, which was also reviewed personally does not show any evidence of pulmonary embolism. Changes of panlobular emphysema noted in the lungs bilaterally, almost all throughout the lungs. The changes are noted to be very much more prominent in the upper two-thirds of the lungs. Small basilar area of atelectasis was noted. There was no gross pulmonary infiltration was seen. [place], [place] PROGRESS NOTE NAME: KAVON MEADOWS [facility] #: [id number] UNIT #: [id number] ROOM: [place] [address] DOCTOR: PATRICIA DE JESUS MD BIRTHDATE: [birth year] IMPRESSION: 1. The patient was noted with advanced end-stage chronic obstructive pulmonary disease panlobular centrilobular emphysema, currently admitted to the hospital with acute exacerbation of chronic obstructive pulmonary disease. 2. Acute change in mental status and hypercarbia with acute on chronic hypercapnic hypoxic respiratory failure. 3. Acute bronchitis. 4. Severe debility with cachexia secondary to the advanced emphysema would be considered. 5. Persistent respiratory acidosis as well with metabolic alkalosis. Partial improvement noted from yesterday. PLAN OF MANAGEMENT: Bronchodilators administration. Continuation of the oxygen supplementation. Continuation of the antibiotic. Encouraged the patient to use the BiPAP as much as possible. Other supportive therapy, plan of management. No additional change in treatment at this time will be necessary. She does not require any new antibiotics from the pulmonary standpoint. All other therapy, plan and management previously as ordered will be continued. Usual care. Monitor respiratory status closely in the Intensive Care Unit next 24 hours to assess the progression of the respiratory failure. Assessed and management discussed with primary care attending of the patient today. PATRICIA LONGO MD CM:PNTRANS [id number] PATRICIA JONES MD 08/02/18 2176 interface
--- NOTE | ~2018-07-30 | EKG ---
[place], [place] ELECTROCARDIOGRAM REPORT NAME: KAVON MEADOWS UNIT #: [id number] ROOM: 520 DOCTOR: WAI DRAFT REPORT BIRTHDATE: [birth year] [facility] Test Date: 2018-08-01 Test Time: 03:24:46 Pat Name: KAVON MEADOWS Department: Room: 520 1 Gender: F Lead Operator: Fredo Taylor : 1955 Requested By: ISIS TAYLOR Order Number: [id number] Reading MD: Jeff Johnson MD Measurements Intervals [place] Rate: 106 P: 88 HI: 135 QRS: 54 QRSD: 126 T: 78 QT: 368 QTc: 489 Interpretive Statements Sinus tachycardia IVCD, consider atypical LBBB Probable old anterior infarction Compared to ECG 07/31/2018 14:44:57 No significant change Electronically Signed On 08-01-2018 6:00:03 PST by Jeff Johnson MD CM:EKGRPT:ELECTROCARDIOGRAM REPORT [id number] ISIS GARCIA DRAFT REPORT ISIS TAYLOR DO
[~2018-07-30 17:04] MED LIST changes: +AVPAK AZITHROM250 MG PO; +DURAGESIC1 EAC1 TD; +Ipratropium Brom3 ML NEB; +VISTARIL25 MG PO
[2018-07-30 17:06] VITALS: BP 122/70
[2018-07-30 18:28] LABS: BILIRUBIN NEGATIVE (NEGATIVE); BLOOD NEGATIVE (NEGATIVE); CLARITY SL CLOUDY (CLEAR); COLOR YELLOW (YELLOW); GLUCOSE NEGATIVE (NEGATIVE); KETONE 2+ (NEGATIVE); LEUKO ESTERASE NEGATIVE (NEGATIVE); NITRITE NEGATIVE (NEGATIVE); SPECIFIC GRAVITY 1.015 (1.005-1.030); UROBILINOGEN 0.2 E.U./dl (0.2-1.0)
[2018-07-30 18:40] LABS: HEMATOCRIT 39.2 % (37.0-47.0); MEAN CELL VOLUME 114.3 fl (81.0-99.0); MEAN CORPUSCULAR HGB CONC 30.6 g/dl (33.0-37.0); MEAN PLATELET VOLUME 12.4 fl (9.6-12.3); PLATELET COUNT AUTOMATED 254 10*3/uL (130-400); RED BLOOD COUNT 3.43 10*6/uL (4.10-5.10); RED CELL DISTRI WIDTH 12.4 % (0-14.5)
[2018-07-30 18:43] LABS: BACTERIA 2+; RBC 0-2 rbc/hpf (0-2)
[2018-07-30 18:55] LABS: ALBUMIN 3.5 gm/dl (3.1-4.5); ALKALINE PHOSPHATASE 83 U/L (45-117); BUN 9 mg/dl (7-24); CHLORIDE 103 mmol/L (98-107); CREATININE 0.54 mg/dL (0.55-1.02); POTASSIUM 4.4 mmol/L (3.5-5.1); SGOT/AST 16 IU/L (3-35); SGPT/ALT 13 U/L (12-78); SODIUM 143 mmol/L (136-145); TOTAL PROTEIN 6.9 gm/dL (6.4-8.2)
[2018-07-30 19:05] LABS: STOMATOCYTE FEW; TOTAL CELLS COUNTED 100 #CELLS
[2018-07-30 19:06] LABS: PLATELET SUFFICIENCY NORMAL (NORMAL)
--- NOTE | 2018-07-30 19:12 | NUR ---
PT IS AWARE SHE NEEDS TO DRINK ALL THE PREP SHE IS TRYING TO FINISH IT CALL LIGHT IN REACH
--- NOTE | 2018-07-30 20:04 | NUR ---
PT FINISHED CT PREP CT NOTIFIED
[2018-07-30 20:22] VITALS: BP 114/49
[2018-07-30 22:26] VITALS: BP 102/68
--- NOTE | 2018-07-30 23:19 | NUR ---
SOLUMEDROL STOPPED UNABLE TO DOCUMENT
--- NOTE | 2018-07-30 23:20 | NUR ---
PT REFUSED TO PUT GOWN ON HAS HER KIERSTEN ON
[2018-07-30 23:25] VITALS: BP 104/72
[2018-07-30 23:38] VITALS: BP 93/70
--- NOTE | 2018-07-30 23:38 | NUR ---
A 63, admitted to , under the services of BETTY Yen DO with a diagnosis of SOB, COPD EXACERBATION. Chief complaint is SOB, ABDOMINAL PAIN. Patient arrived via bed from ER. Monitor applied. Initial assessment completed. Vital signs taken and recorded. BETTY YEN DO notified of admission to the unit. Orders received. See assessment for past medical history, medications and allergies. Patient and/or family oriented to unit. [facility] visitation policy reviewed. Clothing/patient valuable form completed. LISA ANSARI
--- NOTE | 2018-07-31 01:28 | NUR ---
PT STATES THAT ABDOMEN IS HURTING. RATES PAIN 8/10. NORCO GIVEN AT THIS TIME. WILL MONITOR EFFECTIVENESS. CALL LIGHT IN REACH.
--- NOTE | 2018-07-31 02:28 | NUR ---
FIONA EFFECTIVE PER PT.
--- NOTE | 2018-07-31 02:38 | NUR ---
PT DENIES TAKING ANY HOME MEDICATION AT THIS TIME AND STATES THAT SHE ONLY USES SUPPLEMENTAL OXYGEN AT 2L.
[2018-07-31 06:15] LABS: HEMATOCRIT 38.1 % (37.0-47.0); HEMOGLOBIN 11.6 g/dl (12.0-16.0); MEAN CELL VOLUME 113.4 fl (81.0-99.0); MEAN CORPUSCULAR HGB 34.5 pg (27.0-31.0); MEAN CORPUSCULAR HGB CONC 30.4 g/dl (33.0-37.0); MEAN PLATELET VOLUME 12.6 fl (9.6-12.3); PLATELET COUNT AUTOMATED 253 10*3/uL (130-400); RED BLOOD COUNT 3.36 10*6/uL (4.10-5.10); RED CELL DISTRI WIDTH 12.3 % (0-14.5); WHITE BLOOD COUNT 3.5 10*3/uL (4.8-10.8)
[2018-07-31 06:24] LABS: ACT PARTIAL THROMBO TIME 25.7 SECONDS (20.8-31.5)
[2018-07-31 06:29] LABS: CHLORIDE 103 mmol/L (98-107); POTASSIUM 4.3 mmol/L (3.5-5.1); SODIUM 141 mmol/L (136-145)
[2018-07-31 06:41] LABS: ALBUMIN 3.2 gm/dl (3.1-4.5); ALKALINE PHOSPHATASE 77 U/L (45-117); BUN 15 mg/dl (7-24); CHOLESTEROL 153 mg/dL (<200); CREATININE 0.54 mg/dL (0.55-1.02); FREE T4 1.16 ng/dl (0.76-1.46); HDL CHOLESTEROL 68 mg/dl (40-60); LDL CHOLESTEROL 74 mg/dL (9-159); PHOSPHOROUS 3.3 mg/dL (2.5-4.9); SGOT/AST 17 IU/L (3-35); SGPT/ALT 13 U/L (12-78); TOTAL PROTEIN 6.3 gm/dL (6.4-8.2); TRIGLYCERIDES 56 mg/dl (<150); VLDL CHOLESTEROL 11 mg/dL (6-40)
--- NOTE | 2018-07-31 06:56 | NUR ---
CONSULT CALLED TO DR LONGO PER PHYSICIAN ORDERS.
[2018-07-31 07:17] LABS: PLATELET SUFFICIENCY NORMAL (NORMAL); TOTAL CELLS COUNTED 100 #CELLS
[2018-07-31 07:39] LABS: VITAMIN D, 25-HYDROXY 30.9 ng/mL (30-100)
[2018-07-31 08:00] VITALS: BP 102/56
[2018-07-31 12:00] VITALS: BP 100/52
--- NOTE | 2018-07-31 12:48 | NUR ---
SPECIAL WARFARE COMBATANT CREWMAN NOTIFIED ME THAT THE PT HEART RATE WAS HIGH 160. I WENT TO ROOM TO FIND PT GETTING BACK IN BED FROM BS. PT WAS OBVIOUSLY SHORT OF BREATH. AND TRYING TO CATCH HER BREATHE.ENCOURAGED DEEP BREATHING TECHNIQUES AND ADVISED PT TO STOP TALKING AND PURSE LIP BREATH. HR NOW 140'S. NOTIFIED DR LOMELI.
--- NOTE | 2018-07-31 12:52 | NUR ---
WENT TO VIEW MONITOR AND NOTED PT HADF WHAT LOOKED TO BE A BUNDLE BRANCH BLOCK/ST,HR 144, AND NOTIFIED CARD PLACER THAT I NEEDED A STRIP. ORDERS RFECIEVED.
--- NOTE | 2018-07-31 13:41 | NUR ---
PT DENIES ANY CP/PRESSURE.DIFFICULT AT TIMES. STATING THAT SHE "KNOWS IT GOES HAYWIRE FROM THE LAST DR". PT UNABLE TO EXPLAIN DR NAME AND/OR CIRCUMSTANCES. ARGUING ON PHONE WITH FAMILY MEMBERS. ADVISED PT TO CALM DOWN AND COOPERATE WITH CARE. PT HR 120'S AND NO SHORTNESS OF BREATH AT REST. DENIES EVER HAVING A DINKEY OPERATOR. STATES SHE'S GOING TO TAKE A NAP.
[2018-07-31 16:00] VITALS: BP 103/50
--- NOTE | 2018-07-31 18:50 | NUR ---
MESSAGE LEFT ON VOICEMAIL FOR CT TO RETURN MY CALL THAT PT WILL HAVE TO GO DOWN B/N 10-11 FOR CTA DUE TO EATING DINNER.
[2018-07-31 20:00] VITALS: BP 102/41
--- NOTE | 2018-07-31 23:35 | NUR ---
PT REQUESTED PRN RESTORIL AND NORCO. ONCE MEDICATION WAS SCANNED AND CRUSHED SHE DECIDED THAT SHE NO LONGER WANTS IT BECAUSE SHE "DOESN'T WANT TO SLEEP TONIGHT". WILL CONTINUE TO MONITOR.
[2018-08-01] VITALS (7 sets, daily range): BP systolic 101–124; BP diastolic 52–74
--- NOTE | 2018-08-01 01:25 | NUR ---
RECIEVED CALL FROM [facility] [facility] STATING THAT PATIENT HAS LBB. PT'S HEART RATE HAS BEEN RUNNING BETWEEN 90'S-100'S, PT IS ASYMPTOMATIC. WILL CONTINUE TO MONITOR.
--- NOTE | 2018-08-01 01:35 | NUR ---
SPOKE WITH PATIENT ABOUT IRREGULAR HEART RATE. SHE STATES THAT SHE HAS BEEN TOLD THIS FOR YEARS AND THAT SHE HAS ALWAYS BEEN LIKE THIS. SHE SAYS THAT SHE HAS SEEN PHYSICIANS IN THE PAST ABOUT THIS AND WAS TOLD THERE WAS NO ISSUE. PATIENT REMAINS TO BE ASYMPTOMATIC. WILL CONTINUE TO MONITOR.
--- NOTE | 2018-08-01 03:11 | NUR ---
CALL WAS PLACED TO DR. TAYLOR PERTAINING PT'S CHANGED IN HEART RHYTHYM PER CM. ORDER RECIEVED TO OBTAIN STAT EKG.
--- NOTE | 2018-08-01 03:30 | NUR ---
EKG RESULTS RECIEVED. CALL MADE TO DR. TAYLOR. NO NEW ORDERS.
[2018-08-01 06:25] LABS: HEMATOCRIT 33.2 % (37.0-47.0); HEMOGLOBIN 10.3 g/dl (12.0-16.0); MEAN CELL VOLUME 114.5 fl (81.0-99.0); MEAN CORPUSCULAR HGB 35.5 pg (27.0-31.0); MEAN PLATELET VOLUME 12.3 fl (9.6-12.3); PLATELET COUNT AUTOMATED 227 10*3/uL (130-400); RED CELL DISTRI WIDTH 12.6 % (0-14.5)
[2018-08-01 07:02] LABS: BUN 11 mg/dl (7-24); CHLORIDE 109 mmol/L (98-107); CREATININE 0.32 mg/dL (0.55-1.02); LIPASE 149 U/L (73-393); SODIUM 144 mmol/L (136-145)
[2018-08-01 07:54] LABS: TOTAL CELLS COUNTED 100 #CELLS
[2018-08-01 07:55] LABS: PLATELET SUFFICIENCY NORMAL (NORMAL); STOMATOCYTE FEW
--- NOTE | 2018-08-01 08:00 | NUR ---
VS STABLE, MEETA, LUNGS SOUND CLEAR BUT DIMINISHED BILATERALLY, HEART SOUNDS NORMAL, CAP REFILL <3 SECONDS, SKIN INTACT, WARM & DRY, BS X4, ABDOMEN NON TENDER AND NON DISTENDED, POSITIVE PEDAL PULSES. LISANDRA SANTIAGO SPDWAINCC
--- NOTE | 2018-08-01 11:34 | NUR ---
IN TO SEE PT. PT STATES I DON'T WANT TO TALK RIGHT NOW I AM TOO SHORT OF BREATH. WILL REVISIT LATER.
--- NOTE | 2018-08-01 12:00 | NUR ---
PATIENT RESTING IN BED, NO COMPLAINTS AT THIS TIME, WILL CONTINUE TO ASSESS. LISANDRA SANTIAGO SPDWAINCC
--- NOTE | 2018-08-01 12:56 | NUR ---
Adult Parole Officer in to talk to patient. Patient states lives at HOME with ALONE. There are SOME steps in the home. Physician: NONE Pharmacy: [facility] Home health services: NONE Patient's level of ADLs: INDEPENDENT Patient has working utilities: YES DME: OXYGEN SHE PAYS OUT OF POCKET FOR Follow-up physician's appointment after d/c: PT STATES SHE WILL GET ONE Does patient want to access PORTAL?: NO Discharge plan PT STATES SHE LIVES ALONE, HAS OXYGEN SHE PAYS FOR OUT OF POCKET AND HAS NO OTHER NEEDS. WILL CONTINUE TO FOLLOW. STATES SHE WILL HAVE A RIDE HOME.. DEANNA FORTE
--- NOTE | 2018-08-01 15:46 | NUR ---
PT REFUSED AEROSOL TX AT THIS TIME
--- NOTE | 2018-08-01 20:00 | NUR ---
PATIENT FOUND SLUMPED OVER ON BEDSIDE TABLE. VERY DISORIENTED AND CONFUSED. PATIENT STATING WE KIDNAPPED HER AND SHE WANTS TO GO HOME. CLIMBING OUT OF BED AND ATTEMPTING TO LEAVE. NOTIFIED DR. NEWMAN, STAT ABGS ORDERED. DR. NEWMAN AT BEDSIDE.
--- NOTE | 2018-08-01 20:21 | NUR ---
PATIENT PCO2 CRITICALLY HIGH AT 76.4. DR NEWMAN NOTIFIED. BIPAP ORDERED BUT PATIENT IS REFUSING TO WEAR IT. RESPIRATORY IN ROOM WITH PATIENT. DR. LONGO NOTIFIED OF CHANGE IN PATIENTS CONDITION. ORDERED TO TRANSFER PATIENT TO THE ICU AND TO NOTIFY PATIENT FAMILY. DAUGHTER CALLED AND AWARE OF TRANSFER.
[2018-08-01 20:34] LABS: ABG BASE EXCESS 2.5 mmol/L (-2.0-2.0); ABG HCO3 31.7 mmol/l (22-26); ABG O2 SATURATION 98.4 % (95-97); ARTERIAL BLOOD GAS PH 7.239 (7.35-7.45)
[2018-08-01 20:44] LABS: ARTERIAL BLOOD GAS PCO2 76.4 mmHg (35-45)
--- NOTE | 2018-08-01 21:05 | NUR ---
PATIENT TRANSFERED DOWN TO THE ICU, BED 10. REPORT GIVEN TO JACQUELINE JANE. SOFTWARE SUPPORT SPECIALIST AND DR. NEWMAN AWARE OF TRANSFER.
--- NOTE | 2018-08-01 21:10 | NUR ---
PT RECEIVED FROM 5E WITH SHORTNESS OF BREATH AND CONFUSION. SHE IS WIDE AWAKE AND TALKATIVE. + ANXIETY. RESPIRATORY DEPT HERE. PLACED ON BIPAP 05/19 30%.
--- NOTE | 2018-08-01 21:46 | NUR ---
PT LAYING ON HER RT SIDE, BIPAP ON . SHE IS AWAKE AND ALERT. HR 104/MIN. PULSE OX UPPER 90'S.
--- NOTE | 2018-08-01 21:53 | NUR ---
PT'S BOYFRIEND HERE. UPDATED ON PT CONDITION AND PLAN OF CARE. HE CALLED HER DAUGHTER, ABHAY, AND CONVEYED THE SAME TO HER.
--- NOTE | 2018-08-01 22:51 | NUR ---
DR NEWMAN CALLS TO CHECK ON PT CONDITION. PT CONTINUES TO SLEEP WITH BIPAP ON. HR 90'S, RR 16-22/MIN.
--- NOTE | 2018-08-01 23:03 | NUR ---
UPDATED DAUGHTER ON PT CONDITION AND PLAN OF CARE.
--- NOTE | 2018-08-01 23:55 | NUR ---
PT BECAME AGITATED, PULLING BIPAP OFF, YELLING "I DON'T WANT THAT! I WANNA GO BACK TO MY OLD ROOM! YOU KIDNAPPED ME AND I'M CALLING THE POLICE! I'M LEAVING!" DR Sylvia Townsend here to witness this. WE ALL ATTEMPTED REORIENTATION AND EMOTIONAL SUPPORT SHE SWORE AT US AND CONTINUED TO TRY TO GET OOB. HENRI, HER FRIEND, IN FROM LOBBY AND TRIED TO CALM HER WELL. MEDICATED WITH GEODON ORDERED.
[2018-08-02] VITALS: BP 112/66
--- NOTE | 2018-08-02 00:29 | NUR ---
PT IS CALMER BUT STILL AWAKE. I, AGAIN, EXPLAINED RATIONALE FOR PT BEING HERE.
--- NOTE | 2018-08-02 01:20 | NUR ---
BACK ON BIPAP... PULSE OX 94% CHECKED BY RESPIRATORY DEPT.
--- NOTE | 2018-08-02 01:55 | NUR ---
PT RIPPED BIPAP MASK OFF. ASSISTED UP TO BSC TO VOID AND ALSO CHANGED ENTIRE BED RE: INCONTINENCE OF URINE. BACK TO BED...STAFF MEMBERS EXPLAIN, AGAIN, RATIONALE OF WEARING BIPAP. PT CONSENTS TO WEARING IT. REPLACED. PT LAYING ON HER SIDE, SLEEPING.
--- NOTE | 2018-08-02 02:36 | NUR ---
PT HAS AGAIN RIPPED OFF BIPAP MASK. "I TOLD YOU I HAVE CLAUSTROPHOBIA....I CAN'T WEAR THAT DAMN THING!" PLACED ON NC3...WILL ATTEMPT TO REPLACE BIPAP AFTER A SHORT REST FOR PT.
--- NOTE | 2018-08-02 02:45 | NUR ---
PT SLEEPING. HR 80'S.
[2018-08-02 04:00] VITALS: BP 91/50
--- NOTE | 2018-08-02 05:00 | NUR ---
PT CURLED UP SLEEPING AND DR TAYLOR HERE AND AWARE OF HER CONDITION, INCLUDING BP 91/50.
--- NOTE | 2018-08-02 05:55 | NUR ---
PT DOZING. SHE HAS PULLED BLANKET OVER HER HEAD I ADMINISTERED SOLUMEDROL IV. SHE IS IN NO DISTRESS BUT CONTINUES TO REFUSE BIPAP AT THIS TIME SHE DID FOR [facility] DEPT EARLIER WELL. SWEARS AT ME WHEN I, AGAIN, EXPLAIN RATIONALE FOR BIPAP USAGE.
--- NOTE | 2018-08-02 07:34 | NUR ---
Shift chart check completed.24 HR chart check completed.
--- NOTE | 2018-08-02 07:47 | NUR ---
ON ASSESSMENT PATIENT AROUSES EASILY TO HER NAME. SHE KNOWS SHE'S IN THE HOSPITAL WANTS TO "GO BACK UPSTAIRS". SHE DENIES PAIN OR SHORTNESS OF BREATH. HER PJ BOTTOMS ARE OBVIOUSLY WET, BUT PT DENIES URINATING. REFUSES TO LET ME CHANGE HER PANTS.
[2018-08-02 08:00] VITALS: BP 91/50
[2018-08-02 08:45] LABS: MEAN CELL VOLUME 114.6 fl (81.0-99.0); MEAN CORPUSCULAR HGB 34.1 pg (27.0-31.0); MEAN CORPUSCULAR HGB CONC 29.7 g/dl (33.0-37.0); MEAN PLATELET VOLUME 12.5 fl (9.6-12.3); PLATELET COUNT AUTOMATED 214 10*3/uL (130-400); RED CELL DISTRI WIDTH 12.5 % (0-14.5); WHITE BLOOD COUNT 7.3 10*3/uL (4.8-10.8)
[2018-08-02 08:46] LABS: HEMATOCRIT 42.4 % (37.0-47.0); HEMOGLOBIN 12.6 g/dl (12.0-16.0)
[2018-08-02 08:55] LABS: ALBUMIN 3.3 gm/dl (3.1-4.5); ALKALINE PHOSPHATASE 70 U/L (45-117); BUN 11 mg/dl (7-24); CHLORIDE 107 mmol/L (98-107); CREATININE 0.47 mg/dL (0.55-1.02); POTASSIUM 3.8 mmol/L (3.5-5.1); SGOT/AST 20 IU/L (3-35); SGPT/ALT 17 U/L (12-78); SODIUM 146 mmol/L (136-145); TOTAL PROTEIN 6.5 gm/dL (6.4-8.2)
[2018-08-02 09:00] LABS: PLATELET SUFFICIENCY NORMAL (NORMAL); TARGET CELLS FEW; TOTAL CELLS COUNTED 100 #CELLS
--- NOTE | 2018-08-02 09:24 | NUR ---
ABG'S LEFT BRACHIAL AFTER UNSUCCESSFUL ATTEMPTS BY RESP, DR LOYD, AND ONCE BY MYSELF.
[2018-08-02 09:33] LABS: ABG BASE EXCESS 5.1 mmol/L (-2.0-2.0); ABG O2 SATURATION 93.3 % (95-97); ARTERIAL BLOOD GAS PCO2 62.1 mmHg (35-45); ARTERIAL BLOOD GAS PH 7.332 (7.35-7.45); ARTERIAL BLOOD GAS PO2 68.2 mmHg (80-90)
--- NOTE | 2018-08-02 11:22 | NUR ---
[facility] CONSULT WAS CALLED TO THEIR OFFICE. PT HAS BEEN SLEEPING AFTER BREAKFAST OF 1/4 PANCAKE AND 1/2 ENSURE.
--- NOTE | 2018-08-02 11:28 | NUR ---
IN TO SEE PT, AGREES TO TALK WITH [facility], BUT STATES I CAN'T PAY THEM, EXPLAINED THERE IS NO CHARGE AND SHE STATES I CAN'T BELIEVE THAT.
[2018-08-02 12:00] VITALS: BP 91/70
--- NOTE | 2018-08-02 12:49 | NUR ---
AT 1145 PT UP TO BSC TO VOID. SHE COMPLAINED OF DIFFICULTY BREATHING BUT WOULDN'T PUT THE BIPAP ON. SHE HAD TO "CALL SOME PEOPLE AND TELL THEM I'LL BE ON THE MASK AND WON'T BE ABLE TO TALK". AT 1245 AFTER HR 150'S, RR 30'S AND PT COMPLAINING THAT SHE COULDN'T BREATHE, SHE CONSENTED TO HAVE BIPAP APPLIED. AT THIS TIME SHE APPEARS TO BE ASLEEP WITH THE FULL FACE BIPAP ON, HR SLOWLY COMING DOWN,NOW 120.
--- NOTE | 2018-08-02 13:30 | NUR ---
ALVA HAMILTON, PALLIATIVE CARE, HERE TO SEE PT.
[2018-08-02 16:00] VITALS: BP 98/57
--- NOTE | 2018-08-02 17:46 | NUR ---
PT ON HER PHONE ALMOST CONSTANTLY. NO ACUTE DISTRESS. VISITOR AT THE BEDSIDE.
[2018-08-02 20:00] VITALS: BP 123/54
[2018-08-03] VITALS: BP 134/66
[2018-08-03 04:00] VITALS: BP 114/63
--- NOTE | 2018-08-03 06:47 | NUR ---
Shift chart check completed.24 HR chart check completed.
--- NOTE | 2018-08-03 07:54 | NUR ---
PATIENT WAS SLEEPING SOUNDLY, WITH HER BIPAP ON, AT BEGINNING OF SHIFT. WHEN SHE AWAKENED ON HER OWN SHE WAS ORIENTED TO PERSON AND PLACE. NO VOICED COMPLAINTS OF PAIN. UP TO BSC TO VOID. RESTING HR WAS 60'S AND >100 WITH MINIMAL ACTIVITY. REFUSING TO ORDER BREAKFAST YET. "DON'T SORTO ME". SHE IS NOW TALKING ON THE PHONE WITH HER DAUGHTER, DISCUSSING CHECKBOOK AND HER BILLS. SHE IS ABLE TO CONVERSE EASILY WITHOUT DYSPNEA.
[2018-08-03 08:00] VITALS: BP 108/70
[2018-08-03 08:01] LABS: HEMATOCRIT 38.3 % (37.0-47.0); HEMOGLOBIN 11.7 g/dl (12.0-16.0); MEAN CELL VOLUME 115.7 fl (81.0-99.0); MEAN CORPUSCULAR HGB 35.3 pg (27.0-31.0); MEAN CORPUSCULAR HGB CONC 30.5 g/dl (33.0-37.0); MEAN PLATELET VOLUME 12.2 fl (9.6-12.3); PLATELET COUNT AUTOMATED 210 10*3/uL (130-400); RED BLOOD COUNT 3.31 10*6/uL (4.10-5.10); RED CELL DISTRI WIDTH 12.6 % (0-14.5); WHITE BLOOD COUNT 6.6 10*3/uL (4.8-10.8)
[2018-08-03 08:24] LABS: TOTAL CELLS COUNTED 100 #CELLS
[2018-08-03 08:25] LABS: PLATELET SUFFICIENCY NORMAL (NORMAL)
[2018-08-03 08:26] LABS: BUN 13 mg/dl (7-24); CHLORIDE 106 mmol/L (98-107); CREATININE 0.39 mg/dL (0.55-1.02); POTASSIUM 3.6 mmol/L (3.5-5.1); SODIUM 143 mmol/L (136-145)
--- NOTE | 2018-08-03 10:31 | NUR ---
WORE BIPAP FOR 30 MINUTES ONLY. "I'M DONE".
[2018-08-03 12:00] VITALS: BP 111/63
--- NOTE | 2018-08-03 14:09 | NUR ---
TRANSFERRED VIA BED, WITH PORTABLE O2 AND ALL OF HER BELONGINGS TO [facility]. REPORT TO CHICHO
[2018-08-03 16:00] VITALS: BP 116/73
[2018-08-03 20:00] VITALS: BP 117/58
[2018-08-04] VITALS: BP 130/73
--- NOTE | 2018-08-04 01:30 | NUR ---
BIPAP OFF CURRENTLY.
--- NOTE | 2018-08-04 03:03 | NUR ---
PATIENT RESTING QUIETLY WITH 02 IN USE. NO S/S OF ACUTE DISTRESS NOTED.
--- NOTE | 2018-08-04 03:08 | NUR ---
PT OFF BIPAP
[2018-08-04 06:20] LABS: HEMATOCRIT 38.5 % (37.0-47.0); HEMOGLOBIN 11.5 g/dl (12.0-16.0); MEAN CELL VOLUME 113.6 fl (81.0-99.0); MEAN CORPUSCULAR HGB 33.9 pg (27.0-31.0); MEAN CORPUSCULAR HGB CONC 29.9 g/dl (33.0-37.0); MEAN PLATELET VOLUME 12.4 fl (9.6-12.3); PLATELET COUNT AUTOMATED 208 10*3/uL (130-400); RED BLOOD COUNT 3.39 10*6/uL (4.10-5.10); RED CELL DISTRI WIDTH 12.2 % (0-14.5); WHITE BLOOD COUNT 6.1 10*3/uL (4.8-10.8)
[2018-08-04 06:36] LABS: ALBUMIN 2.9 gm/dl (3.1-4.5); ALKALINE PHOSPHATASE 59 U/L (45-117); BUN 14 mg/dl (7-24); CHLORIDE 101 mmol/L (98-107); CREATININE 0.33 mg/dL (0.55-1.02); POTASSIUM 3.9 mmol/L (3.5-5.1); SGOT/AST 13 IU/L (3-35); SGPT/ALT 15 U/L (12-78); SODIUM 143 mmol/L (136-145); TOTAL PROTEIN 5.7 gm/dL (6.4-8.2)
[2018-08-04 07:33] LABS: PLATELET SUFFICIENCY NORMAL (NORMAL); TOTAL CELLS COUNTED 100 #CELLS
--- NOTE | 2018-08-04 11:21 | NUR ---
PT CONTINUES TO DENY ANY NEEDS AT HOME. [facility] TO FOLLOW PT AFTER DISCHARGE.
[2018-08-04 12:00] VITALS: BP 106/60
[2018-08-04 16:00] VITALS: BP 125/62
[2018-08-04 20:00] VITALS: BP 94/46
--- NOTE | 2018-08-04 22:53 | NUR ---
PT PLACED ON BIPAP
--- NOTE | 2018-08-04 23:31 | NUR ---
PT TOOK BIPAP OFF
[2018-08-05] VITALS: BP 87/71
--- NOTE | 2018-08-05 02:04 | NUR ---
PT PLACED ON BIPAP
--- NOTE | 2018-08-05 04:23 | NUR ---
PT PLACED ON BIPAP
[2018-08-05 07:03] LABS: HEMATOCRIT 37.9 % (37.0-47.0); HEMOGLOBIN 11.7 g/dl (12.0-16.0); MEAN CELL VOLUME 112.5 fl (81.0-99.0); MEAN CORPUSCULAR HGB 34.7 pg (27.0-31.0); MEAN CORPUSCULAR HGB CONC 30.9 g/dl (33.0-37.0); PLATELET COUNT AUTOMATED 211 10*3/uL (130-400); RED BLOOD COUNT 3.37 10*6/uL (4.10-5.10); RED CELL DISTRI WIDTH 12.2 % (0-14.5); WHITE BLOOD COUNT 6.1 10*3/uL (4.8-10.8)
[2018-08-05 07:23] LABS: ALBUMIN 2.9 gm/dl (3.1-4.5); ALKALINE PHOSPHATASE 58 U/L (45-117); BUN 18 mg/dl (7-24); CHLORIDE 101 mmol/L (98-107); CREATININE 0.45 mg/dL (0.55-1.02); POTASSIUM 3.8 mmol/L (3.5-5.1); SGOT/AST 10 IU/L (3-35); SGPT/ALT 13 U/L (12-78); SODIUM 143 mmol/L (136-145); TOTAL PROTEIN 5.6 gm/dL (6.4-8.2)
--- NOTE | 2018-08-05 07:31 | NUR ---
NOTIFIED DR. PAL OF [facility].
[2018-08-05 07:57] LABS: PLATELET SUFFICIENCY NORMAL (NORMAL); STOMATOCYTE FEW; TARGET CELLS FEW; TOTAL CELLS COUNTED 100 #CELLS
[2018-08-05 12:00] VITALS: BP 90/63
--- NOTE | 2018-08-05 13:50 | NUR ---
[facility] Discharge instructions reviewed with patient/family. Patient receptive and verbalizes understanding. Follow-up care arranged. Written instructions given to patient/family. YONG CERVANTES
== END 2018-08-05 13:50 | disposition hospice, home (50) | DRG 193 ==
LOC: ED 17:04 → 5E 22:30 → EDHOLD 22:30 → 5E 22:46 → ICCU 08-01 20:55 → 4E 08-03 13:43
PROVIDERS: Emergency Medicine; Internal Medicine; Student in an Organized Health Care Education/Training Program; ADMIT Internal Medicine
PROC: 5A09357 Assistance with Respiratory Ventilation, Less than 24 Consecutive Hours, Continuous Positive Airway Pressure (ICD-10-PCS; principal; 2018-08-01)
PROC: 5A09357 Assistance with Respiratory Ventilation, Less than 24 Consecutive Hours, Continuous Positive Airway Pressure (ICD-10-PCS; 2018-08-02)
PROC: 5A09357 Assistance with Respiratory Ventilation, Less than 24 Consecutive Hours, Continuous Positive Airway Pressure (ICD-10-PCS; 2018-08-03)
PROC: 5A09357 Assistance with Respiratory Ventilation, Less than 24 Consecutive Hours, Continuous Positive Airway Pressure (ICD-10-PCS; 2018-08-04)
DX: J18.9 Pneumonia, unspecified organism (principal); J96.21 Acute and chronic respiratory failure with hypoxia; J96.22 Acute and chronic respiratory failure with hypercapnia; G93.41 Metabolic encephalopathy; E44.1 Mild protein-calorie malnutrition; M48.56XA Collapsed vertebra, not elsewhere classified, lumbar region, initial encounter for fracture; E87.4 Mixed disorder of acid-base balance; Z68.1 Body mass index [BMI] 19.9 or less, adult; F41.1 Generalized anxiety disorder; D75.89 Other specified diseases of blood and blood-forming organs; R10.84 Generalized abdominal pain; K59.00 Constipation, unspecified; J20.9 Acute bronchitis, unspecified; K82.8 Other specified diseases of gallbladder; J43.2 Centrilobular emphysema; E55.9 Vitamin D deficiency, unspecified; Z99.81 Dependence on supplemental oxygen; Z88.6 Allergy status to analgesic agent; Z87.01 Personal history of pneumonia (recurrent); Z87.440 Personal history of urinary (tract) infections; Z87.891 Personal history of nicotine dependence; Z82.49 Family history of ischemic heart disease and other diseases of the circulatory system

== ENCOUNTER 2018-08-05 14:21 | Inpatient (IN) | payer OTHER ==
[~2018-08-05] VITALS: Ht 152.4 cm; Wt 33.6 kg
[2018-08-05 16:00] VITALS: BP 104/58
[2018-08-05 20:00] VITALS: BP 89/53
--- NOTE | 2018-08-06 | NUR ---
RESTING IN BED WITH EYES CLOSED. 02 INTACT. CALL LIGHT WITHIN REACH. NO DISTRESS NOTED; WILL CONTINUE TO MONITOR.
--- NOTE | 2018-08-06 03:00 | NUR ---
REPOSITIONED IN BED FOR COMFORT. 02 INTACT. PULSE OX 92%. CALL LIGHT WITHIN REACH.
--- NOTE | 2018-08-06 06:00 | NUR ---
RESTING IN BED WITH EYES CLOSE. 02 BEING MAINTAINED. CALL LIGHT WITHIN REACH.
[2018-08-06 08:00] VITALS: BP 88/50
--- NOTE | 2018-08-06 08:00 | NUR ---
Patient resting quietly with no c/o discomfort. Respirations easy and regular. Vital signs stable. No overt distress. INA PICHARDO
[2018-08-06 12:00] VITALS: BP 99/43
--- NOTE | 2018-08-06 13:47 | NUR ---
NURSE FROM [facility] HERE TO SEE PATIENT.
[2018-08-06 16:00] VITALS: BP 91/53
--- NOTE | 2018-08-06 16:29 | NUR ---
PT C/O INCREASED SOB AND ANXIETY. PT MEDICATED WITH IV ATIVAN PER PRN ORDER. RESPIRATORY IN ROOM AT THIS TIME. BIPAP APPLIED AT THIS TIME.
--- NOTE | 2018-08-06 18:51 | NUR ---
RESPIRATORY PAGED AT THIS TIME TO TAKE PATIENT OFF OF BIPAP.
--- NOTE | 2018-08-06 19:00 | NUR ---
PT ASLEEP IN BED. NO SIGNS OR SYMPTOMS OF DISTRESS NOTED AT THIS TIME. WILL CONTINUE TO MONITOR.
--- NOTE | 2018-08-06 20:05 | NUR ---
NOTIFIED BY THE AIDE THAT THE PATIENT WAS REFUSING VITAL SIGNS. PT WAS TALKED TO BUT SHE STILL IS DECLINING TO HAVE VITAL SIGNS OBTAINED. WILL TRY AGAIN AT A LATER TIME.
--- NOTE | 2018-08-06 20:09 | NUR ---
24 HOUR CHART CHECK COMPLETE.
[2018-08-07] VITALS: BP 72/358; BP 72/38
--- NOTE | 2018-08-07 02:35 | NUR ---
PT IS ASLEEP IN BED WITH 4L NC AT THIS TIME. NO S/S OF SOB OR DISTRESS. WILL CONTINUE TO MONITOR.
--- NOTE | 2018-08-07 04:19 | NUR ---
PT AWAKE AND SITTING UP IN BED. SHE STATES THAT SHE BELIEVES SHE HAS BEEN GETTING MORPHINE MULTIPLE TIMES THROUGHOUT THE DAY AND NIGHT. SHE WAS REASSURED THAT THIS IS NOT THE CASE. PT STATES THAT SHE IS SICK OF BEING HERE AND WANTS TO GO HOME. PT OFFERED FOOD AND DRINK. WILL CONTINUE TO MONITOR.
[2018-08-07 08:00] VITALS: BP 100/58
--- NOTE | 2018-08-07 09:01 | NUR ---
PATIENT RESTING QUIETLY IN BED. 02 IN USE VIA 4LNC. RESPIRATIONS EASY, REGULAR AT REST. VSS. WILL CONTINUE TO MONITOR. CALL LIGHT WITHIN REACH.
[2018-08-07 12:00] VITALS: BP 92/47
--- NOTE | 2018-08-07 14:06 | NUR ---
PT REQUESTING TO GO ON BIPAP. RESPIRATORY ON FLOOR AND WILL PLACE PATIENT ON THE BIPAP.
--- NOTE | 2018-08-07 14:14 | NUR ---
PT PLACED BACK ON BIPAP 12/6 30% O2 PER PT REQUEST
--- NOTE | 2018-08-07 15:29 | NUR ---
BIPAP OFF AT THIS TIME. 02 IN USE VIA 4LNC. WILL CONTINUE TO MONITOR. LUNCH TRAY ORDERED AT THIS TIME.
[2018-08-07 16:00] VITALS: BP 93/63
--- NOTE | 2018-08-07 17:41 | NUR ---
[facility] IN TO SEE PATIENT.
--- NOTE | 2018-08-07 18:47 | NUR ---
PT MEDICATED WITH IV ATIVAN PER PRN ORDER FOR C/O ANXIETY. WILL MONITOR EFFECTIVENESS.
--- NOTE | 2018-08-07 19:40 | NUR ---
PT IS AWAKE AND SITTING UP IN BED WHILE ON THE PHONE WITH FAMILY MEMBER. PT STATES SHE IS NOT HAVING ANY PAIN AT THIS TIME BUT THAT SHE IS AGGITATED AND WANTS TO GO HOME. CALL LIGHT IS WITHIN REACH, WILL CONTINUE TO MONITOR.
[2018-08-07 20:00] VITALS: BP 78/42
--- NOTE | 2018-08-07 20:13 | NUR ---
24 HR CHART CHECK COMPLETE.
--- NOTE | 2018-08-07 22:17 | NUR ---
HOSPICE NURSE IN TO SEE THE PT. NO COMPLAINTS MADE AT THIS TIME. SHE STATES THAT SHE WILL BE ABLE TO BE DISCHARGED HOME TOMORROW AFTER THE REQUIRED EQUIPMENT IS DELIVERED TO HER HOME.
[2018-08-08] VITALS: BP 72/47
[2018-08-08 08:00] VITALS: BP 85/49
--- NOTE | 2018-08-08 11:57 | NUR ---
PT IS CURRENTLY UNDER [facility]. PT STATES SHE INTENDS TO GO HOME WHEN SHE CAN WITH HOSPICE CARE. SHE STATES SHE HAS TO HAVE SOME THINGS MOVED AROUND AT HER HOUSE TO ACCOMADATE THE HOSPITAL BED AND EQUIPMENT. WILL CONTINUE TO FOLLOW.
[2018-08-08 12:00] VITALS: BP 90/52
--- NOTE | 2018-08-08 12:04 | NUR ---
SPOKE WITH DR. BRIAN REGARDING PATIENTS CONCERNS WITH HOSPICE. DR. BRIAN WILL BE UP TO SPEAK WITH PATIENT.
[2018-08-08] MEDS ORDERED: OXYCONTIN10 M1 PO (15:29)
[2018-08-08] MEDS ORDERED: OXYCODONE5 M1 PO (15:29)
[2018-08-08] MEDS ORDERED: ATIVAN1 MG PO (15:29)
[2018-08-08] MEDS ORDERED: Ipratropium Brom3 ML NEB (15:29)
[2018-08-08] MEDS ORDERED: PREDNISONE10 MG PO (15:30)
[2018-08-08] MEDS ORDERED: ATARAX,VISTARIL50 MG PO (15:30)
[2018-08-08] MEDS ORDERED: LIDODERM1 EACH T (15:32)
--- NOTE | 2018-08-08 16:14 | NUR ---
[facility] WILL PICK PT UP AT 5PM FOR TRANSPORT TO [place]. PT, RN AND JOINT SETTER NOTIFIED. PT STATES SHE WILL CALL HER FAMILY AND INFORM THEM.
--- NOTE | 2018-08-08 18:55 | NUR ---
PT PLACED ON BIPAP
--- NOTE | 2018-08-08 19:30 | NUR ---
PER PREVIOUS RN EVIN, HOSPICE TO TRANSPORT PATIENT TO [place]. PICK WAS SCHEDULED [phone]; HOWEVER, PATIENT REMAINS IN HOSPITAL. ATTEMPTED TO REACH [facility] - MESSAGE LEFT WITH ANSWERING SERVICE. AWAITING RETURN CALL
--- NOTE | 2018-08-08 19:46 | NUR ---
PT PLACED ON BIPAP
--- NOTE | 2018-08-08 19:47 | NUR ---
PT TAKEN OFF BIPAP
--- NOTE | 2018-08-08 19:55 | NUR ---
JOI RN FROM HOSPICE RETURNED CALL. [facility] KIER TENDER WAITING AT PATIENT'S [facility]. JOI WAS UNDER THE IMPRESSION THAT PATIENT WAS ALREADY AT [facility]. SCRIPTS REVIEWED WITH KIER TENDER. PER KIER TENDER (JOI), [facility] ON THE WAY FROM [place] TO [facility] PATIENT.
[2018-08-08 20:00] VITALS: BP 86/50
--- NOTE | 2018-08-08 20:08 | NUR ---
EXPLAINED TO PATIENT THAT [facility] ON THE WAY TO TRANSPORT PATIENT TO [place]. PATIENT ANXIOUS. ON AND OFF BI-PAP. CALLING MULTIPLE FAMILY MEMBERS AND CURSING. IV ATIVAN ADMINISTERED PER PRN ORDER TO ASSIST WITH ANXIETY
--- NOTE | 2018-08-08 20:15 | NUR ---
[facility] ARRIVES TO TRANSPORT PATIENT. PATIENT BEGINS YELLING AND CURSING AT [facility], "I'M NOT RIDDING IN THE FRONT OF YOUR CAR, IT'S TOO SMALL." PATIENT ON PHONE CALLING KETAN WHO IS TO HELP TRASNPORT PATIENT
--- NOTE | 2018-08-08 20:40 | NUR ---
TONY BRANNON. PATIENT ASSISTED TO BACKSEAT OF SUV. O2 IN USE. SCRIPTS PROVIDED
== END 2018-08-08 20:40 | disposition hospice, home (50) | DRG 193 ==
LOC: 4E 14:21
PROVIDERS: ADMIT Internal Medicine
PROC: 5A09357 Assistance with Respiratory Ventilation, Less than 24 Consecutive Hours, Continuous Positive Airway Pressure (ICD-10-PCS; principal; 2018-08-07)
PROC: 5A09357 Assistance with Respiratory Ventilation, Less than 24 Consecutive Hours, Continuous Positive Airway Pressure (ICD-10-PCS; 2018-08-08)
DX: J18.9 Pneumonia, unspecified organism (principal); G93.41 Metabolic encephalopathy; E43 Unspecified severe protein-calorie malnutrition; J96.11 Chronic respiratory failure with hypoxia; Z68.1 Body mass index [BMI] 19.9 or less, adult; J43.2 Centrilobular emphysema; F41.9 Anxiety disorder, unspecified; D75.89 Other specified diseases of blood and blood-forming organs; R62.7 Adult failure to thrive; Z51.5 Encounter for palliative care; Z99.81 Dependence on supplemental oxygen; Z87.81 Personal history of (healed) traumatic fracture; Z87.891 Personal history of nicotine dependence; Z82.49 Family history of ischemic heart disease and other diseases of the circulatory system; Z88.6 Allergy status to analgesic agent